=== PATIENT | female | born 1950 | race Caucasian/White ===

== ENCOUNTER 2017-07-06 16:22 | Observation (INO) | payer MEDICARE, MEDICAID ==
[~2017-07-06] VITALS: Ht 162.6 cm; Wt 75.0 kg
[~2017-07-06 16:22] MED LIST: AMBI10TA PO; CLON1 PO; ENDO7.5T10 PO; ESTR0.62 PV; EVIS60TA PO; FISH500C PO; FURO1TAB93 PO; GEOD80CA PO; MULTCAP13 PO; POTA-243 PO; QUET300 PO; SIMV20TA PO; SYNT100T PO; VITA400C58 PO; ZANA4CAP PO; ZANT300T PO
[2017-07-06 16:31] VITALS: BP 190/101; PULSE 99; RESP 18; TEMP 98.6
[2017-07-06] MEDS ORDERED: SODIUM CHLORIDE 0.9% FLUSH 10 ML FLUSH IV FLUSH PRN ×2 (16:45→19:00)
--- NOTE | 2017-07-06 16:45 | PD ---
HPI Chief Complaint: Psychiatric Symptoms Time Seen by Provider: 16:30 Travel History International Travel<30 days: No Contact w/Intl Traveler<30days: No Traveled to known affect area: No History of Present Illness HPI 66-year-old female presents by ambulance for altered mental status since 7 PM last night. She will not talk here and history is significantly limited. PFSH Past Medical History Narrative Medical by records Arthritis: Yes Bipolar Disorder: Yes Anxiety: Yes Depression: Yes High Cholesterol: Yes Fibromyalgia: Yes Hiatal Hernia: Yes (REPAIRED) Psychiatric: Yes Immunizations Current: Yes Thyroid Disease: Yes (HYPOTHYROIDISM) Menopausal: Yes : 2 Para: 2 Tubal Ligation: Yes Past Surgical History Narrative Surgical by records Cholecystectomy: Yes Hysterectomy: Yes Tonsillectomy: Yes Other Surgery: Yes (GALLBLADDER, HIETAL HERNIA) Social History Alcohol Use: No Tobacco Use: No Substance Use: No (denies; admits to social use of ETOH, had two beers yesterday) Allergies-Medications (Allergen,Severity, Reaction): Coded Allergies: Sulfa (Sulfonamide Antibiotics) (Unverified Allergy, Severe, 05/15/17) erythromycin base (Unverified Allergy, Severe, 05/15/17) penicillin G (Unverified Allergy, Severe, 05/15/17) Reported Meds & Prescriptions Reported Meds & Active Scripts Active Reported Geodon (Ziprasidone) 80 Mg Cap 240 Mg PO HS Trazodone (Trazodone HCl) 100 Mg Tablet 100 Mg PO HS Zanaflex (Tizanidine HCl) 4 Mg Tab 4 Mg PO TID Zantac (Ranitidine HCl) 300 Mg Tab 300 Mg PO HS Evista (Raloxifene HCl) 60 Mg Tab 60 Mg PO DAILY Seroquel (Quetiapine Fumarate) 400 Mg Tab 400 Mg PO DAILY Metamucil Smooth Texture (Psyllium Hydrophilic Mucilloid) 3.4 Gram Pow 3.4 Gm PO DAILY Klor-Con 10 (Potassium Chloride) 10 Meq Tab 10 Meq PO BID Miralax Powder (Polyethylene Glycol 3350 Powder) 17 Gm Powd 17 Gm PO DAILY Mix and dissolve one measuring capful (17 grams) in water or juice. [place]-3 ([place]-3 Fatty Acids) 1,000 Mg Capsule 1,000 Mg PO BID Multi-Vitamin/Minerals (Multiple Vitamins W/ Minerals) 1 Tab Tab 1 Tab PO DAILY Remeron (Mirtazapine) 30 Mg Tab 30 Mg PO HS Levothyroxine (Levothyroxine Sodium) 112 Mcg Tab 112 Mcg PO DAILY Lasix (Furosemide) 40 Mg Tab 40 Mg PO DAILY Klonopin (Clonazepam) 1 Mg Tab 1 Mg PO TID Citracal+D3 (Ngcotgf-Vbbksojeos-Ilmfave D) 250-107-500 Mg-Mg-Unit Chew 1 Chew PO BID Lipitor (Atorvastatin Calcium) 20 Mg Tab 20 Mg PO HS Aspirin Adult Low Strength (Aspirin) 81 Mg Tabdr 81 Mg PO DAILY Percocet (Oxycodone-Acetaminophen) 7.5-325 mg Tab 1 Tab PO Q6H PRN Review of Systems ROS Limitations: Poor Historian Physical Exam Exam Limitations: Poor Historian Narrative GENERAL: 66-year-old female with eyes open who responds to pain SKIN: Focused skin assessment warm/dry. HEAD: Atraumatic. Normocephalic. EYES: Pupils equal and round. No scleral icterus. No injection or drainage. ENT: No nasal bleeding or discharge. Mucous membranes pink and moist. NECK: Trachea midline. No JVD. CARDIOVASCULAR: Regular rate and rhythm. No murmur appreciated. RESPIRATORY: No accessory muscle use. Clear to auscultation. Breath sounds equal bilaterally. GASTROINTESTINAL: Abdomen nondistended. NEUROLOGICAL: Eyes open, moves extremities, mumbles, localizes pain Data Data Last Documented VS Vital Signs Date Time Temp Pulse Resp B/P (MAP) Pulse Ox O2 Delivery O2 Flow Rate FiO2 07/06/17 17:25 99 18 07/06/17 16:51 97 Nasal Cannula 2.00 07/06/17 16:31 98.6 190/101 (130) Orders Orders Electrocardiogram (07/06/17 16:35) Ammonia (07/06/17 16:35) Complete Blood Count With Diff (07/06/17 16:35) Comprehensive Metabolic Panel (07/06/17 16:35) Creatine Kinase (Cpk) (07/06/17 16:35) Prothrombin Time / Inr (Pt) (07/06/17 16:35) Act Partial Throm Time (Ptt) (07/06/17 16:35) Urinalysis - C+S If Indicated (07/06/17 16:35) Arterial Blood Gas (Abg) (07/06/17 16:35) Ct Brain W/O Iv Contrast(Rout) (07/06/17 16:35) Blood Glucose (07/06/17 16:35) Ecg Monitoring (07/06/17 16:35) Iv Access Insert/Monitor (07/06/17 16:35) Oximetry (07/06/17 16:35) Sodium Chloride 0.9% Flush (Ns Flush) (07/06/17 16:45) Drug Screen, Random Urine (07/06/17 16:35) Alcohol (Ethanol) (07/06/17 16:47) CKMB (07/06/17 16:47) CKMB% (07/06/17 16:47) Admit Order (Ed Use Only) (07/06/17 18:05) Diet Npo (07/06/17 Dinner) Vital Signs (Adult) MIKE.Q4H (07/06/17 18:05) Neuro Checks . ORDERED (07/06/17 18:05) Sodium Chlor 0.9% 1000 Ml Inj (Ns 1000 M (07/06/17 18:15) Labs Laboratory Tests Test 07/06/17 16:47 07/06/17 16:48 07/06/17 16:52 White Blood Count 6.1 TH/MM3 Red Blood Count 4.12 MIL/MM3 Hemoglobin 13.5 GM/DL Hematocrit 39.5 % Mean Corpuscular Volume 96.0 FL Mean Corpuscular Hemoglobin 32.7 PG Mean Corpuscular Hemoglobin Concent 34.1 % Red Cell Distribution Width 13.6 % Platelet Count 317 TH/MM3 Mean Platelet Volume 6.8 FL Neutrophils (%) (Auto) 66.8 % Lymphocytes (%) (Auto) 24.9 % Monocytes (%) (Auto) 7.5 % Eosinophils (%) (Auto) 0.2 % Basophils (%) (Auto) 0.6 % Neutrophils # (Auto) 4.1 TH/MM3 Lymphocytes # (Auto) 1.5 TH/MM3 Monocytes # (Auto) 0.5 TH/MM3 Eosinophils # (Auto) 0.0 TH/MM3 Basophils # (Auto) 0.0 TH/MM3 CBC Comment DIFF FINAL Differential Comment Prothrombin Time 10.7 SEC Prothromb Time International Ratio 1.1 RATIO Activated Partial Thromboplast Time 23.2 SEC Blood Urea Nitrogen 15 MG/DL Creatinine 1.17 MG/DL Random Glucose 91 MG/DL Total Protein 7.0 GM/DL Albumin 3.3 GM/DL Calcium Level 9.8 MG/DL Alkaline Phosphatase 78 U/L Aspartate Amino Transf (AST/SGOT) 55 U/L Alanine Aminotransferase (ALT/SGPT) 47 U/L Total Bilirubin 0.3 MG/DL Sodium Level 139 MEQ/L Potassium Level 4.3 MEQ/L Chloride Level 103 MEQ/L Carbon Dioxide Level 28.0 MEQ/L Anion Gap 8 MEQ/L Estimat Glomerular Filtration Rate 46 ML/MIN Ammonia 15 MCMOL/L Total Creatine Kinase 468 U/L Creatine Kinase MB 2.2 NG/ML Creatine Kinase MB % 0.5 % Ethyl Alcohol Level LESS THAN 3 MG/DL Urine Color LIGHT-YELLOW Urine Turbidity CLEAR Urine pH 7.5 Urine Specific [place] 1.004 Urine Protein NEG mg/dL Urine Glucose (UA) NEG mg/dL Urine Ketones NEG mg/dL Urine Occult Blood NEG Urine Nitrite NEG Urine Bilirubin NEG Urine Urobilinogen LESS THAN 2.0 MG/DL Urine Leukocyte Esterase NEG Urine WBC LESS THAN 1 /hpf Microscopic Urinalysis Comment CATH-CULT NOT IND Urine Opiates Screen NEG Urine Barbiturates Screen NEG Urine Amphetamines Screen NEG Urine Benzodiazepines Screen NEG Urine Cocaine Screen NEG Urine Cannabinoids Screen NEG Blood Gas Puncture Site RT RADIAL Blood Gas Patient Temperature 98.6 Blood Gas HCO3 28 mmol/L Blood Gas Base Excess 4.2 mmol/L Blood Gas Oxygen Saturation 92 % Arterial Blood pH 7.47 Arterial Blood Partial Pressure CO2 39 mmHg Arterial Blood Partial Pressure O2 70 mmHG Arterial Blood Oxygen Content 16.2 Vol % Arterial Blood Carboxyhemoglobin 1.5 % Arterial Blood Methemoglobin 0.8 % Blood Gas Hemoglobin 12.5 G/DL Blood Gas Inspired Oxygen 21 % [facility] Medical Decision Making Medical Screen Exam Complete: Yes Emergency Medical Condition: Yes Medical Record Reviewed: Yes (Past history confirmed) Interpretation(s) CBC & BMP Diagram 07/06/17 16:47 Total Protein 7.0, Albumin 3.3 L, Calcium Level 9.8, Alkaline Phosphatase 78, Aspartate Amino Transf (AST/SGOT) 55 H, Alanine Aminotransferase (ALT/SGPT) 47, Total Bilirubin 0.3 Last [address] 07/06/17 8005 Signed Impressions: Service Date/Time: Thursday, July 06, 2017 17:28 - CONCLUSION: Unremarkable study. Deborah Hameed MD Differential Diagnosis Alcohol intoxication, hepatic encephalopathy, electrolyte abnormality, intracranial Narrative Course We will check blood work, urinalysis, CT head and reevaluate ed workup no acute, will place in observation for further care, patient's family updated at bedside and are concerned about her taking her medications appropriately. They agree with admission Physician Communication Physician Communication dr shore agrees to admit Diagnosis Primary Impression: Altered mental status Qualified Codes: R41.82 - Altered mental status, unspecified Admitting Information Admitting Physician Requests: Observation Elizabeth Joyner MD Jul 06, 2017 16:45
[2017-07-06 16:51] VITALS: O2SAT 97
[2017-07-06] MEDS ORDERED: FURO1TAB60 PO (16:54)
[2017-07-06] MEDS ORDERED: TIZA4 PO (16:54)
[2017-07-06] MEDS ORDERED: MULTTAB62 PO (16:54)
[2017-07-06] MEDS ORDERED: MIRA3350 PO (16:54)
[2017-07-06] MEDS ORDERED: SERO400T PO (16:54)
[2017-07-06] MEDS ORDERED: PERC7.5T13 PO (16:54)
[2017-07-06] MEDS ORDERED: TRAZ100T10 PO (16:54)
[2017-07-06] MEDS ORDERED: GEOD80CA PO (16:54)
[2017-07-06] MEDS ORDERED: ZANT300T PO (16:54)
[2017-07-06] MEDS ORDERED: LIPI20TA PO (16:54)
[2017-07-06] MEDS ORDERED: RALO60 PO (16:54)
[2017-07-06] MEDS ORDERED: CALC1CHW30 PO (16:54)
[2017-07-06] MEDS ORDERED: META28PO PO (16:54)
[2017-07-06] MEDS ORDERED: LEVO112T2 PO (16:54)
[2017-07-06] MEDS ORDERED: KLOR10TA PO (16:54)
[2017-07-06] MEDS ORDERED: REME30TA PO (16:54)
[2017-07-06] MEDS ORDERED: CLON1 PO (16:54)
[2017-07-06] MEDS ORDERED: OMEG10004 PO (16:54)
[2017-07-06] MEDS ORDERED: ASPI81TA16 PO (16:54)
[2017-07-06 17:11] LABS: BILIRUBIN, URINE NEG (NEG); BLOOD, URINE NEG (NEG); GLUCOSE,URINE NEG (NEG); KETONE, URINE NEG (NEG); NITRITE,URINE NEG (NEG); PH, URINE 7.5 (5.0-8.5); URINE COLOR LIGHT-YELLOW (YELLW/STRAW); URINE LEUKOCYTE ESTERASE NEG (NEG)
[2017-07-06 17:24] LABS: INTERNATIONAL NORMALIZED RATIO 1.1 RATIO; PROTHROMBIN TIME - PATIENT 10.7 SEC (9.8-11.6)
--- NOTE | 2017-07-06 17:37 | RADRPT ---
EXAM DATE/TIME: 07/06/2017 17:28 [place] COMPARISON: No previous studies available for comparison. INDICATIONS : Non verbal, altered mental status. RADIATION DOSE: 41.12 CTDIvol (mGy) MEDICAL HISTORY : Gastroesophageal reflux disease. Hernia, hiatal. Psych SURGICAL HISTORY : Cholecystectomy. Hysterectomy. ENCOUNTER: Initial ACUITY: 1 day PAIN SCALE: 0/10 LOCATION: cranial TECHNIQUE: Multiple contiguous axial images were obtained of the head. Using automated exposure control and adj ustment of the mA and/or kV according to patient size, radiation dose was kept as low as reasonably a chievable to obtain optimal diagnostic quality images. DICOM format image data is available electro nically for review and comparison. FINDINGS: There is no evidence for intracranial hemorrhage, mass effect, mass lesions, edema, or extra-axial fl uid collections. The visualized bony structures appear intact. The ventricles are normal size for t he patient's age. There are no signs of acute infarction for technique. There is minimal mucoperiost eal thickening within the left maxillary sinus. CONCLUSION: Unremarkable study. Deborah Hameed MD on July 06, 2017 at 17:34 Board Certified Radiologist. This report was verified electronically.
[2017-07-06 17:50] LABS: AUTOMATED NEUTROPHIL # 4.1 TH/MM3 (1.8-7.7); BASOPHIL % 0.6 % (0.0-2.0); EOSINOPHIL % 0.2 % (0.0-4.0); HEMATOCRIT 39.5 % (35.0-46.0); HEMOGLOBIN 13.5 GM/DL (11.6-15.3); LYMPH % 24.9 % (9.0-44.0); LYMPHOCYTE # 1.5 TH/MM3 (1.0-4.8); MEAN CORPUSCULAR HEMOGLOBIN 32.7 PG (27.0-34.0); MEAN CORPUSCULAR HGB CONC 34.1 % (32.0-36.0); MEAN PLATELET VOLUME 6.8 FL (7.0-11.0); MONO % 7.5 % (0.0-8.0); MONOCYTE # 0.5 TH/MM3 (0-0.9); NEUT % 66.8 % (16.0-70.0); PLATELET COUNT 317 TH/MM3 (150-450); RED BLOOD COUNT 4.12 MIL/MM3 (4.00-5.30); RED CELL DISTRIBUTION WIDTH 13.6 % (11.6-17.2); WHITE BLOOD COUNT 6.1 TH/MM3 (4.0-11.0)
[2017-07-06 17:51] LABS: ALT (GPT) 47 U/L (10-53)
[2017-07-06 17:53] LABS: ALBUMIN 3.3 GM/DL (3.4-5.0); ALKALINE PHOSPHATASE 78 U/L (45-117); AST (GOT) 55 U/L (15-37); BLOOD UREA NITROGEN 15 MG/DL (7-18); CALCIUM 9.8 MG/DL (8.5-10.1); CHLORIDE 103 MEQ/L (98-107); CREATININE 1.17 MG/DL (0.50-1.00); GLOMERULAR FILTRATION RATE 46 ML/MIN (>89); GLUCOSE,RANDOM 91 MG/DL (74-106); SODIUM (NA) 139 MEQ/L (136-145); TOTAL BILIRUBIN ADULT 0.3 MG/DL (0.2-1.0)
[2017-07-06] MEDS: SODIUM CHLOR 0.9% 1000 ML INJ 1,000 ML IV SCH ×2 (18:20→20:24)
[2017-07-06 18:25] VITALS: BP 153/87; PULSE 92; RESP 18; O2SAT 100
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
[2017-07-06] MEDS ORDERED: BISACODYL 10 MG SUPP RECTAL PRN (19:00)
[2017-07-06] MEDS ORDERED: LACTULOSE SYRUP 20 GM/30 ML CUP PO PRN (19:00)
[2017-07-06] MEDS ORDERED: ONDANSETRON HCL 4 MG/2 ML VIAL IVP PRN (19:00)
[2017-07-06] MEDS ORDERED: SENNOSIDES 8.6 MG TAB PO PRN (19:00)
[2017-07-06] MEDS ORDERED: ACETAMINOPHEN 325 MG TAB PO PRN (19:00)
[2017-07-06] MEDS ORDERED: MAGNESIUM HYDROXIDE SUSP 30 ML CUP PO PRN (19:00)
[2017-07-06] MEDS: DOCUSATE SODIUM 50 MG/SENNA 8.6 MG TAB PO SCH (20:23)
[2017-07-06] MEDS: LORazepam 2 MG/ML VIAL IV PUSH PRN (20:24)
[2017-07-06] MEDS: SODIUM CHLORIDE 0.9% FLUSH 10 ML FLUSH IV FLUSH SCH (20:24)
[2017-07-06] MEDS ORDERED: MIRTAZAPINE ODT 30 MG TAB PO SCH (21:00)
[2017-07-06] MEDS ORDERED: traZODone HCL 100 MG TAB PO SCH (21:00)
[2017-07-06 21:19] VITALS: BP 175/82; PULSE 93; RESP 17; TEMP 98.9; O2SAT 94
[2017-07-07 04:36] LABS: AUTOMATED NEUTROPHIL # 2.6 TH/MM3 (1.8-7.7); BASOPHIL % 0.6 % (0.0-2.0); EOSINOPHIL % 0.8 % (0.0-4.0); HEMATOCRIT 35.8 % (35.0-46.0); LYMPH % 37.1 % (9.0-44.0); LYMPHOCYTE # 1.9 TH/MM3 (1.0-4.8); MEAN CELL VOLUME 96.3 FL (80.0-100.0); MEAN CORPUSCULAR HEMOGLOBIN 32.4 PG (27.0-34.0); MEAN CORPUSCULAR HGB CONC 33.6 % (32.0-36.0); MEAN PLATELET VOLUME 6.3 FL (7.0-11.0); MONO % 11.8 % (0.0-8.0); MONOCYTE # 0.6 TH/MM3 (0-0.9); NEUT % 49.7 % (16.0-70.0); PLATELET COUNT 312 TH/MM3 (150-450); RED BLOOD COUNT 3.71 MIL/MM3 (4.00-5.30); RED CELL DISTRIBUTION WIDTH 13.4 % (11.6-17.2); WHITE BLOOD COUNT 5.2 TH/MM3 (4.0-11.0)
[2017-07-07] MEDS: SODIUM CHLOR 0.9% 1000 ML INJ 1,000 ML IV SCH ×3 (04:38→12:44)
[2017-07-07 04:46] VITALS: BP 144/79; PULSE 89; RESP 17; TEMP 98.9; O2SAT 95
[2017-07-07 05:00] LABS: ALBUMIN 2.9 GM/DL (3.4-5.0); ALKALINE PHOSPHATASE 67 U/L (45-117); ALT (GPT) 42 U/L (10-53); AST (GOT) 51 U/L (15-37); BICARBONATE 28.4 MEQ/L (21.0-32.0); BLOOD UREA NITROGEN 14 MG/DL (7-18); CHLORIDE 107 MEQ/L (98-107); CREATININE 1.02 MG/DL (0.50-1.00); GLOMERULAR FILTRATION RATE 54 ML/MIN (>89); GLUCOSE,RANDOM 82 MG/DL (74-106); SODIUM (NA) 142 MEQ/L (136-145); TOTAL BILIRUBIN ADULT 0.3 MG/DL (0.2-1.0); TOTAL PROTEIN 6.2 GM/DL (6.4-8.2)
[2017-07-07] MEDS: LORazepam 2 MG/ML VIAL IV PUSH PRN (05:13)
[2017-07-07 07:48] VITALS: BP 166/89; PULSE 84; RESP 16; TEMP 98.7; O2SAT 95
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
[2017-07-07] MEDS: DOCUSATE SODIUM 50 MG/SENNA 8.6 MG TAB PO SCH (10:04)
[2017-07-07] MEDS: SODIUM CHLORIDE 0.9% FLUSH 10 ML FLUSH IV FLUSH SCH (10:05)
[2017-07-07] MEDS ORDERED: SODIUM CHLORIDE 0.65% NASAL SPRAY 45 ML BTL EACH NARE PRN (11:00)
[2017-07-07 11:45] VITALS: BP 146/71; PULSE 82; RESP 16; TEMP 98.6; O2SAT 95
[2017-07-07] MEDS ORDERED: QUEtiapine FUMARATE 200 MG TAB PO SCH (14:00)
--- NOTE | 2017-07-07 14:06 | PD.PSY.CON ---
Provisional Diagnosis Admission Date Jul 06, 2017 at 18:06 [place] I. Schizoaffective disorder, bipolar type, parkinsonism (medication induced?) [place] II. Deferred [place] III. COPD, hypothyroidism, hypertension, acute renal insufficiency rhabdomyolysis [place] IV. Poor Social support, history of chronic medical illnesses. [place]as V. 40 History of Present Illness Service Psychiatry Consult Requested By ER team Reason for Consult Acute ihsan Primary Care Physician Unknown HPI The patient is 66-year-old woman, domiciled with her fianc in [facility], retired, with psychiatric history of schizoaffective disorder bipolar type, bipolar disorder, depression, anxiety, around 12 psychiatric hospitalizations, her last hospitalization was last month in [place], she was hospitalized for about 3 weeks, no previous suicidal attempts, no self cutting behavior, establish outpatient care with Dr. Caldera, she is on Remeron 30 mg, Paxil and 100 mg, Seroquel 400 mg, Geodon 80 mg twice a day, medical history of Fibromyalgia, HTN and Hypothyroidism who was brought to the ER by family secondary to AMS. Pt unable to provide any history at this time as she is non-verbal and not following commands. Sister and Brother in Law at bedside providing history. Per Sister, pt was "fine" last night at approx 7pm when they went to visit her at her house. States she was walking/talking without any difficulty. Today, sister states she was unable to reach pt and became concerned. Upon their arrival pt noted to be in "manic state", mumbling/pacing , walking into linder, non-verbal. Per Sister, pt has had h/o similar symptoms, recently admitted to [facility] for similar presentation thought to be related to not taking medications. Sister believes patient's boyfriend may be stealing her pills and is concerned he is also stealing her money. On arrival, BP 190/ 100, HR 99, O2 sat 97% on 2L NC, Afebrile. CBC unremarkable. Chemistry unremarkable except for creatinine 1.17, previously 1.09 on 08/09/09. K4 68. Ammonia normal. INR 1.1. UA negative. Urine Drug Screen negative. Alcohol negative. CT Head unremarkable. Chart reviewed. The case was widely discussed with primary attending and nurse in charge. Per information from her sister Jadyn Colmenares was obtained. On psychiatric evaluation the patient at the beginning a little bit guarded and oppositional, but with redirection she became very cooperative calmer. She is not insightful about the reason of her hospitalization. She says that she was brought to the hospital because she collapsed and blackout. She does not remember having any major mood episode. She reports good mood at this moment. She denies suicidal and homicidal ideation, she denies visual and auditory hallucinations. The patient is able to answer correctly and in a logical manner most of my questions. She is logical, she is coherent and relevant. Completely oriented 3. No attention deficit, no fluctuation of consciousness present. During my evaluation there is no hakeem loosening of associations, flight of ideas, there is a little bit of paranoia toward her sister, but there is no marked ihsan, agitation or aggressive behavior. However, as per primary attending and nurse in charge, the patient has been screaming in the ER, difficult to handle, needing constant redirection. Her sister reports that, they do not live together, but since the patient was discharged from the hospitalization of 3 weeks in [place] about 2 weeks ago, she has been receiving phone calls of the patient's neighbor due to erratic and disorganized behavior and of the patient. She feels that the patient is not safe at home. She says that the patient's fianc is most probably taking her medications, he has history of drug abuse. She feels that the patient has been decompensated especially in the last 3 days, making accusations to her, accusations about her fianc, most probably not taking her medications, her apartment "is a mess". She is afraid of the patient is not safe alone and she is not able to take care of herself. She also adds that the patient has been sleeping very poorly since she was discharged from [place]. Review of Systems Constitutional: DENIES: Diaphoretic episodes, Fatigue, Fever, Weight gain, Weight loss, Chills, Dizziness, Change in appetite, Night Sweats Endocrine: DENIES: Abnorml menstrual pattern, Heat/cold intolerance, Polydipsia , Polyuria, Polyphagia Eyes: DENIES: Blurred vision, Diplopia, Eye inflammation, Eye pain, Vision loss , Photosensitivity, Double Vision Ears, nose, mouth, throat: DENIES: Tinnitus, Hearing loss, Vertigo, Nasal discharge, Oral lesions, Throat pain, Hoarseness, Ear Pain, Running Nose, Epistaxis, Sinus Pain, Toothache, Odynophagia Respiratory: DENIES: Apneas, Cough, Snoring, Wheezing, Hemoptysis, Sputum production, Shortness of breath Cardiovascular: DENIES: Chest pain, Palpitations, Syncope, Dyspnea on Exertion , PND, Lower Extremity Edema, Orthopnea, Claudication Gastrointestinal: DENIES: Abdominal pain, Black stools, Bloody stools, Constipation, Diarrhea, Nausea, Vomiting, Difficulty Swallowing, Anorexia Genitourinary: DENIES: Abnormal vaginal bleeding, Dysmenorrhea, Dyspareunia, Sexual dysfunction, Urinary frequency, Urinary incontinence, Urgency, Hematuria , Dysuria, Nocturia, Vaginal discharge Musculoskeletal: DENIES: Joint pain, Muscle aches, Stiffness, Joint Swelling, Back pain, Neck pain Integumentary: DENIES: Abnormal pigmentation, Pruritus, Rash, Nail changes, Breast masses, Breast skin changes, Nipple discharge Hematologic/lymphatic: DENIES: Bruising, Lymphadenopathy Immunologic/allergic: DENIES: Eczema, Urticaria Psychiatric: COMPLAINS OF: Mood changes, Delusions, DENIES: Anxiety, Confusion , Depression, Hallucinations, Agitation, Suicidal Ideation, Homicidal Ideation Past Family Social History Coded Allergies: Sulfa (Sulfonamide Antibiotics) (Unverified Allergy, Severe, 05/15/17) erythromycin base (Unverified Allergy, Severe, 05/15/17) penicillin G (Unverified Allergy, Severe, 05/15/17) Reported Medications Ziprasidone (Geodon) 80 Mg Cap, 240 MG PO HS, #60 CAP 0 Refills 07/06/17 Trazodone (Trazodone) 100 Mg Tablet, 100 MG PO HS for Control Depression, #30 TAB 0 Refills 07/06/17 Tizanidine (Zanaflex) 4 Mg Tab, 4 MG PO TID for Muscle Spasm, TAB 0 Refills 18 Ranitidine (Zantac) 300 Mg Tab, 300 MG PO HS, TAB 0 Refills 07/06/17 Raloxifene (Evista) 60 Mg Tab, 60 MG PO DAILY for Chemotherapy Management, #30 TAB 0 Refills 07/06/17 Quetiapine (Seroquel) 400 Mg Tab, 400 MG PO DAILY, #30 TAB 0 Refills 18 Psyllium Powder (Metamucil Smooth Texture) 3.4 Gram Pow, 3.4 GM PO DAILY 07/06/17 Potassium Chloride ER (Klor-Con 10) 10 Meq Tab, 10 MEQ PO BID for Electrolyte Replacement, #60 TAB 0 Refills 07/06/17 Polyethylene Glycol 3350 Powder (Miralax Powder) 17 Gm Powd, 17 GM PO DAILY for Constipation, #1 CAN 0 Refills Mix and dissolve one measuring capful (17 grams) in water or juice. 07/06/17 [place]-3 Fatty Acids ([place]-3) 1,000 Mg Capsule, 1000 MG PO BID for Nutritional Supplement 07/06/17 Multiple Vitamins W/ Minerals (Multi-Vitamin/Minerals) 1 Tab Tab, 1 TAB PO DAILY for Nutritional Supplement 07/06/17 Mirtazapine (Remeron) 30 Mg Tab, 30 MG PO HS for Depression Control, #30 TAB 0 Refills 07/06/17 Levothyroxine (Levothyroxine) 112 Mcg Tab, 112 MCG PO DAILY for Thyroid, #30 TAB 0 Refills 07/06/17 Furosemide (Lasix) 40 Mg Tab, 40 MG PO DAILY, #30 TAB 0 Refills 07/06/17 Kjjitpv-Mgnhixdfpc-Pzywpmb D (Citracal+D3) 250-107-500 Mg-Mg-Unit Chew, 1 CHEW PO BID, TAB 07/06/17 Atorvastatin (Lipitor) 20 Mg Tab, 20 MG PO HS for Cholesterol Management, #30 TAB 0 Refills 07/06/[address] (Aspirin Adult Low Strength) 81 Mg Tabdr, 81 MG PO DAILY, TAB 07/06/17 Oxycodone-Acetaminophen (Percocet) 7.5-325 mg Tab, 1 TAB PO Q6H Y for SEVERE PAIN, TAB 0 Refills 07/06/17 Discontinued Reported Medications Clonazepam (Klonopin) 1 Mg Tab, 1 MG PO TID, #90 TAB 0 Refills 07/06/17 Current Medications Medications (Trade) Dose Ordered Sig/Gabriela Route Start Time Stop Time Status Last Admin Sodium Chloride 1,000 ml @ 84 mls/hr [id number] IV 07/06/17 18:15 07/07/17 04:38 Sodium Chloride 1,000 ml @ 100 mls/hr Q10H IV 07/06/17 19:00 07/06/17 20:24 (NS Flush) 2 ml UNSCH PRN IV FLUSH 07/06/17 19:00 (NS Flush) 2 ml BID IV FLUSH 07/06/17 21:00 07/06/17 20:24 (Zofran Inj) 4 mg Q6H PRN IVP 07/06/17 19:00 (Tylenol) 650 mg Q6H PRN PO 07/06/17 19:00 (Neetu-Colace) 1 tab BID PO 07/06/17 21:00 07/07/17 10:04 (Milk Of Magnesia Liq) 30 ml Q12H PRN PO 07/06/17 19:00 07/06/17 21:04 (Senokot) 17.2 mg Q12H PRN PO 07/06/17 19:00 (Dulcolax Supp) 10 mg DAILY PRN RECTAL 07/06/17 19:00 (Lactulose Liq) 30 ml DAILY PRN PO 07/06/17 19:00 (Zanaflex) 4 mg TID PO 07/07/17 09:00 07/07/17 12:43 (Ativan Inj) 1 mg Q2H PRN IV PUSH 07/06/17 19:00 07/07/17 05:13 (Remeron Soltab Odt) 30 mg HS PO 07/06/17 21:00 07/07/17 00:31 (Desyrel) 100 mg HS PO 07/06/17 21:00 07/06/17 20:23 (Ensign Rg [place]) 2 spray Q4H PRN EACH NARE 07/07/17 11:00 07/07/17 12:43 (Geodon) 240 mg HS PO 07/07/17 21:00 UNV Non-Formulary Medication 400 mg DAILY PO 07/07/17 13:45 UNV Family Psych History Patient has several family members with bipolar disorder Social History Patient was born in [place], racing in the [place] area, she lives in [facility] with her fianc, she is retired, has 2 daughters, no contact with them, supported by SSI and SSD, her highest level of education is some college Patient's Strengths (min. 2) Patient has established outpatient care Physical Exam Patient has bilateral hand tremors, she scan of hypoactive, extensive, but no acute withdrawal, sedation noted Vital Signs Vital Signs Date Time Temp Pulse Resp B/P (MAP) Pulse Ox O2 Delivery O2 Flow Rate FiO2 07/07/17 11:45 98.6 82 16 146/71 (96) 95 07/06/17 18:25 Room Air 07/06/17 16:51 2.00 Lab Results Test 07/06/17 16:47 07/06/17 16:48 07/06/17 16:52 07/07/17 04:15 White Blood Count 6.1 TH/MM3 5.2 TH/MM3 Red Blood Count 4.12 MIL/MM3 3.71 MIL/MM3 Hemoglobin 13.5 GM/DL 12.0 GM/DL Hematocrit 39.5 % 35.8 % Mean Corpuscular Volume 96.0 FL 96.3 FL Mean Corpuscular Hemoglobin 32.7 PG 32.4 PG Mean Corpuscular Hemoglobin Concent 34.1 % 33.6 % Red Cell Distribution Width 13.6 % 13.4 % Platelet Count 317 TH/MM3 312 TH/MM3 Mean Platelet Volume 6.8 FL 6.3 FL Neutrophils (%) (Auto) 66.8 % 49.7 % Lymphocytes (%) (Auto) 24.9 % 37.1 % Monocytes (%) (Auto) 7.5 % 11.8 % Eosinophils (%) (Auto) 0.2 % 0.8 % Basophils (%) (Auto) 0.6 % 0.6 % Neutrophils # (Auto) 4.1 TH/MM3 2.6 TH/MM3 Lymphocytes # (Auto) 1.5 TH/MM3 1.9 TH/MM3 Monocytes # (Auto) 0.5 TH/MM3 0.6 TH/MM3 Eosinophils # (Auto) 0.0 TH/MM3 0.0 TH/MM3 Basophils # (Auto) 0.0 TH/MM3 0.0 TH/MM3 CBC Comment DIFF FINAL DIFF FINAL Differential Comment Prothrombin Time 10.7 SEC Prothromb Time International Ratio 1.1 RATIO Activated Partial Thromboplast Time 23.2 SEC Blood Urea Nitrogen 15 MG/DL 14 MG/DL Creatinine 1.17 MG/DL 1.02 MG/DL Random Glucose 91 MG/DL 82 MG/DL Total Protein 7.0 GM/DL 6.2 GM/DL Albumin 3.3 GM/DL 2.9 GM/DL Calcium Level 9.8 MG/DL 9.0 MG/DL Alkaline Phosphatase 78 U/L 67 U/L Aspartate Amino Transf (AST/SGOT) 55 U/L 51 U/L Alanine Aminotransferase (ALT/SGPT) 47 U/L 42 U/L Total Bilirubin 0.3 MG/DL 0.3 MG/DL Sodium Level 139 MEQ/L 142 MEQ/L Potassium Level 4.3 MEQ/L 4.1 MEQ/L Chloride Level 103 MEQ/L 107 MEQ/L Carbon Dioxide Level 28.0 MEQ/L 28.4 MEQ/L Anion Gap 8 MEQ/L 7 MEQ/L Estimat Glomerular Filtration Rate 46 ML/MIN 54 ML/MIN Ammonia 15 MCMOL/L Total Creatine Kinase 468 U/L 294 U/L Creatine Kinase MB 2.2 NG/ML 1.2 NG/ML Creatine Kinase MB % 0.5 % 0.4 % Ethyl Alcohol Level LESS THAN 3 MG/DL Urine Color LIGHT-YELLOW Urine Turbidity CLEAR Urine pH 7.5 Urine Specific [place] 1.004 Urine Protein NEG mg/dL Urine Glucose (UA) NEG mg/dL Urine Ketones NEG mg/dL Urine Occult Blood NEG Urine Nitrite NEG Urine Bilirubin NEG Urine Urobilinogen LESS THAN 2.0 MG/DL Urine Leukocyte Esterase NEG Urine WBC LESS THAN 1 /hpf Microscopic Urinalysis Comment CATH-CULT NOT IND Urine Opiates Screen NEG Urine Barbiturates Screen NEG Urine Amphetamines Screen NEG Urine Benzodiazepines Screen NEG Urine Cocaine Screen NEG Urine Cannabinoids Screen NEG Blood Gas Puncture Site RT RADIAL Blood Gas Patient Temperature 98.6 Blood Gas HCO3 28 mmol/L Blood Gas Base Excess 4.2 mmol/L Blood Gas Oxygen Saturation 92 % Arterial Blood pH 7.47 Arterial Blood Partial Pressure CO2 39 mmHg Arterial Blood Partial Pressure O2 70 mmHG Arterial Blood Oxygen Content 16.2 Vol % Arterial Blood Carboxyhemoglobin 1.5 % Arterial Blood Methemoglobin 0.8 % Blood Gas Hemoglobin 12.5 G/DL Blood Gas Inspired Oxygen 21 % Test 07/07/17 12:05 Total Creatine Kinase 191 U/L Mental Status Examination Appearance: Appropriate Consciousness: Alert Orientation: x4 Motor Activity: Normal gait Speech: Unremarkable Language: Adequate Fund of Knowledge: Adequate Attention and Concentration: Adequate Memory: Unremarkable Mood: Appropriate Affect: Appropriate Thought Process & Associations: Intact Thought Content: Appropriate Hallucination Type: None Delusion Type: Paranoid Suicidal Ideation: No Suicidal Plan: No Suicidal Intention: No Homicidal Ideation: No Homicidal Plan: No Homicidal Intention: No Insight: Fair Judgment: Impulsive Assessment & Plan Problem List: (1) Schizoaffective disorder ICD Codes: F25.9 - Schizoaffective disorder, unspecified Assessment & Plan: On psychiatric evaluation today the patient presents calm, cooperative in the interview, she reports good mood, denies suicidal and homicidal ideation, she denies visual and auditory hallucinations. Moment she is logical, she is coherent and relevant. There is no evidence of acute ihsan at the moment. However, there is some paranoia, internal preoccupation present. As per collateral formation the patient has been presented prominent mood swings, episodic ihsan, difficulty sleeping at night, periods of disorganization and paranoia, self neglecting behavior at home. Her sister feels that the patient is not safe to be living independently in the community with this level of decompensation. I'm going to go ahead and rodriguez acted the patient. Patient could be potentially a danger to self and others. I will restart her outpatient psychotropics. Will ADD benztropine 1 mg twice a day for parkinsonism. Extensive support, motivation and psychoeducation provided. Case was widely discussed with primary attending and nurse in charge. Assessment & Plan Estimated LOS: Lane Bean MD Jul 07, 2017 14:06
[2017-07-07] MEDS ORDERED: BENZTROPINE MESYLATE 1 MG TAB PO SCH (14:15)
[2017-07-07 15:17] VITALS: BP 124/66; PULSE 81; RESP 16; TEMP 98.7; O2SAT 96
[2017-07-07] MEDS ORDERED: ZIPRASIDONE HCL 80 MG CAP PO SCH (21:00)
--- NOTE | 2017-07-07 22:14 | EKG ---
Date Performed: 07/06/2017 Time Performed: 16:47:37 PTAGE: 66 years EKG: Sinus rhythm BORDERLINE LEFT AXIS DEVIATION MINIMAL VOLTAGE CRITERIA FOR LVH, CONSIDER NORMAL VARIANT BORDERLINE ECG PREVIOUS TRACING : 09/10/2004 15.06 DOCTOR: Luis Iniguez Interpretating Date/Time 07/07/2017 22:05:01
== END 2017-07-07 15:54 ==
LOC: NEPC 16:22 → NEDA 18:06 → NEPGCP 19:32
PROVIDERS: ADMIT Family Medicine; ATTEND Family Medicine
DX: G93.40 Encephalopathy, unspecified (principal); F31.9 Bipolar disorder, unspecified; N28.9 Disorder of kidney and ureter, unspecified; M62.82 Rhabdomyolysis; R55 Syncope and collapse; I12.9 Hypertensive chronic kidney disease with stage 1 through stage 4 chronic kidney disease, or unspecified chronic kidney disease; N18.9 Chronic kidney disease, unspecified; E03.9 Hypothyroidism, unspecified; J44.9 Chronic obstructive pulmonary disease, unspecified; M79.7 Fibromyalgia; G20 Parkinson's disease; K21.9 Gastro-esophageal reflux disease without esophagitis; F25.0 Schizoaffective disorder, bipolar type; F41.9 Anxiety disorder, unspecified; Z91.14 Patient's other noncompliance with medication regimen; Z79.899 Other long term (current) drug therapy; Z79.82 Long term (current) use of aspirin; Z88.0 Allergy status to penicillin; Z88.2 Allergy status to sulfonamides
CPT/HCPCS: 36600; 70450; 80053; 80307; 81001; 82140; 82550; 82552; 82805; 85025; 85610; 85730; 93005; 96361; 96374; 96376; G0378; G8987-GP; G8988-GP; J2060; J7030

== ENCOUNTER 2017-07-07 15:11 | Inpatient (IN) | payer OTHER, MEDICAID, MEDICARE ==
[~2017-07-07] VITALS: Ht 157.5 cm; Wt 74.0 kg
[~2017-07-07 15:11] MED LIST changes: -AMBI10TA PO; +ASPI81TA16 PO; +CALC1CHW30 PO; -ENDO7.5T10 PO; -ESTR0.62 PV; -EVIS60TA PO; -FISH500C PO; +FURO1TAB60 PO; -FURO1TAB93 PO; +KLOR10TA PO; +LEVO112T2 PO; +LIPI20TA PO; +META28PO PO; +MIRA3350 PO; -MULTCAP13 PO; +MULTTAB62 PO; +OMEG10004 PO; +PERC7.5T13 PO; -POTA-243 PO; -QUET300 PO; +RALO60 PO; +REME30TA PO; +SERO400T PO; -SIMV20TA PO; -SYNT100T PO; +TIZA4 PO; +TRAZ100T10 PO; -VITA400C58 PO; -ZANA4CAP PO
[2017-07-07 17:00] VITALS: BP 117/58; PULSE 93; RESP 20; TEMP 98.5; O2SAT 96
[2017-07-07 18:08] VITALS: BP 116/65; PULSE 93; RESP 16; TEMP 98.2; O2SAT 95
[2017-07-07] MEDS ORDERED: LORazepam 1 MG TAB PO PRN (19:00)
[2017-07-07] MEDS ORDERED: MAGNESIUM HYDROXIDE SUSP 30 ML CUP PO PRN (19:00)
[2017-07-07] MEDS ORDERED: ALUMINUM/MAGNESIUM/SIMETH 30 ML CUP PO PRN (19:00)
[2017-07-07] MEDS ORDERED: LORazepam 2 MG/ML VIAL IM PRN ×2 (19:00)
[2017-07-07] MEDS: CALCIUM/VITAMIN D 250 MG/125 U TAB PO SCH (21:00)
[2017-07-07] MEDS: ZIPRASIDONE HCL 80 MG CAP PO SCH (21:00)
[2017-07-07] MEDS: MIRTAZAPINE ODT 30 MG TAB PO SCH (21:00)
[2017-07-07] MEDS: REMOVE OLD NICODERM (NICOTINE) PATCH T-DERMAL SCH (21:00)
[2017-07-07] MEDS ORDERED: OMEGA PO SCH (21:00)
[2017-07-07] MEDS: traZODone HCL 100 MG TAB PO SCH (21:00)
[2017-07-07] MEDS ORDERED: FATTY ACIDS PO SCH (21:00)
[2017-07-07] MEDS ORDERED: ZIPRASIDONE HCL 80 MG CAP PO SCH (21:00)
[2017-07-07] MEDS: FAMOTIDINE 20 MG TAB PO SCH (21:47)
[2017-07-07] MEDS: ATORVASTATIN 20 MG TAB PO SCH (21:47)
[2017-07-07] MEDS: POTASSIUM CHLORIDE 10 MEQ CONTROLLED RELEASE TAB PO SCH (21:47)
[2017-07-08 06:00] VITALS: BP 131/84; PULSE 88; RESP 16; TEMP 98.9; O2SAT 100
[2017-07-08] MEDS: LEVOTHYROXINE SODIUM 112 MCG TAB PO SCH (06:35)
[2017-07-08] MEDS: NICOTINE 21 MG/24 HR PATCH T-DERMAL SCH (08:29)
[2017-07-08] MEDS: FAMOTIDINE 20 MG TAB PO SCH ×2 (08:29→21:13)
[2017-07-08] MEDS: POTASSIUM CHLORIDE 10 MEQ CONTROLLED RELEASE TAB PO SCH ×2 (08:30→21:13)
[2017-07-08] MEDS: CALCIUM/VITAMIN D 250 MG/125 U TAB PO SCH ×2 (08:30→21:13)
[2017-07-08] MEDS: FUROSEMIDE 40 MG TAB PO SCH (08:30)
[2017-07-08] MEDS: ASPIRIN EC 81 MG TABEC PO SCH (08:31)
[2017-07-08] MEDS ORDERED: NON-FORMULARY DRUG (Quetiapine (Seroquel) 400 MG) PO SCH (09:00)
[2017-07-08] MEDS: ACETAMINOPHEN 325 MG TAB PO PRN (10:53)
--- NOTE | 2017-07-08 10:59 | PD.CONS ---
HPI Service [facility] Hospitalists Consult Requested By Dr. Rueda Reason for Consult Medical Management Primary Care Physician Unknown Diagnoses: (1) Bipolar disorder History of Present Illness 66-year-old female with history of bipolar disorder, anxiety, depression, fibromyalgia, cervical and lumbar DDD, hypertension, hypothyroidism, admitted to inpatient psych for acute manic episode. The patient is unable to recall events leading up to her admission. According to EMR, the patient's sister and [id number] were concerned about the patient as she was nonverbal, not following commands, mumbling/pacing, walking into linder. Reportedly the sister stated that the patient had a similar presentation when she was not taking her medications. The sister is concerned the patient's boyfriend may be stealing her medications and money. Hospitalist was consulted for medical management. She tells me today that her thoughts are racing. Upon review of systems, she complains of a mild global headache. Denies any visual changes, lightheadedness , dizziness, fever/chills, chest pain, shortness breath, or abdominal complaints. She is not able to recall all of the medications she takes on a regular basis. She is requesting her nasal spray be restarted which she believes is Flonase. She states she is on lasix for leg swelling but denies any history of CHF. She has no other medical complaints at this time. Review of Systems Except as stated in HPI: all other systems reviewed are Neg Past Family Social History Allergies: Coded Allergies: Sulfa (Sulfonamide Antibiotics) (Unverified Allergy, Severe, 05/15/17) erythromycin base (Unverified Allergy, Severe, 05/15/17) penicillin G (Unverified Allergy, Severe, 05/15/17) Past Medical History bipolar disorder anxiety depression fibromyalgia cervical and lumbar DDD hypertension hypothyroidism seasonal allergies chronic dependent edema bilateral lower extremities Past Surgical History Cholecystectomy Hysterectomy Tonsillectomy Hiatal hernia Left wrist fracture ORIF Reported Medications Geodon (Ziprasidone) 80 Mg Cap 240 Mg PO HS Trazodone (Trazodone HCl) 100 Mg Tablet 100 Mg PO HS Zanaflex (Tizanidine HCl) 4 Mg Tab 4 Mg PO TID Zantac (Ranitidine HCl) 300 Mg Tab 300 Mg PO HS Evista (Raloxifene HCl) 60 Mg Tab 60 Mg PO DAILY Seroquel (Quetiapine Fumarate) 400 Mg Tab 400 Mg PO DAILY Metamucil Smooth Texture (Psyllium Hydrophilic Mucilloid) 3.4 Gram Pow 3.4 Gm PO DAILY Klor-Con 10 (Potassium Chloride) 10 Meq Tab 10 Meq PO BID Miralax Powder (Polyethylene Glycol 3350 Powder) 17 Gm Powd 17 Gm PO DAILY Mix and dissolve one measuring capful (17 grams) in water or juice. Alpha-3 (Alpha-3 Fatty Acids) 1,000 Mg Capsule 1,000 Mg PO BID Multi-Vitamin/Minerals (Multiple Vitamins W/ Minerals) 1 Tab Tab 1 Tab PO DAILY Remeron (Mirtazapine) 30 Mg Tab 30 Mg PO HS Levothyroxine (Levothyroxine Sodium) 112 Mcg Tab 112 Mcg PO DAILY Lasix (Furosemide) 40 Mg Tab 40 Mg PO DAILY Citracal+D3 (Cvzqyqf-Ciafqkzeaw-Wyclxzx D) 250-107-500 Mg-Mg-Unit Chew 1 Chew PO BID Lipitor (Atorvastatin Calcium) 20 Mg Tab 20 Mg PO HS Aspirin Adult Low Strength (Aspirin) 81 Mg Tabdr 81 Mg PO DAILY Percocet (Oxycodone-Acetaminophen) 7.5-325 mg Tab 1 Tab PO Q6H PRN Active Ordered Medications Current Medications Medications (Trade) Dose Ordered Sig/Gabriela Route Start Time Stop Time Status Last Admin (Ecotrin Ec) 81 mg DAILY PO 07/08/17 09:00 07/08/17 08:31 (Lipitor) 20 mg HS PO 07/07/17 21:00 07/07/17 21:47 (Lasix) 40 mg DAILY PO 07/08/17 09:00 07/08/17 08:30 (Synthroid) 112 mcg DAILY@0600 PO 07/08/17 06:00 07/08/17 06:35 (Remeron Soltab Odt) 30 mg HS PO 07/07/17 21:00 Future Hold (KCl) 10 meq BID PO 07/07/17 21:00 07/08/17 08:30 (Zanaflex) 4 mg TID PO 07/08/17 09:00 07/08/17 08:30 (Oscal-D 250-125) 2 mg BID PO 07/07/17 21:00 07/08/17 08:30 Patient Own Medication PT OWN MED: (Omeg... BID PO 07/07/17 21:00 Future Hold (Pepcid) 20 mg BID PO 07/07/17 21:00 07/08/17 08:29 (Desyrel) 100 mg HS PO 07/07/17 21:00 Future Hold (Geodon) 80 mg BID PO 07/07/17 21:00 Future Hold (Ativan) 1 mg Q6H PRN PO 07/07/17 19:00 Future Hold (Ativan Inj) 1 mg Q6H PRN IM 07/07/17 19:00 Future Hold (Ativan) 0.5 mg Q12H PRN PO 07/07/17 19:00 Future Hold (Ativan Inj) 0.5 mg Q12H PRN IM 07/07/17 19:00 Future Hold (Tylenol) 650 mg Q4H PRN PO 07/07/17 19:00 07/08/17 10:53 (Milk Of Magnesia Liq) 30 ml DAILY PRN PO 07/07/17 19:00 (Mag-Al Plus Susp Liq) 30 ml Q6H PRN PO 07/07/17 19:00 (Habitrol 21 Mg Patch.24 Hr) 1 patch DAILY T-DERMAL 07/08/17 09:00 07/08/17 08:29 Miscellaneous Information 1 HS T-DERMAL 07/07/17 21:00 (SEROquel) 400 mg DAILY PO 07/08/17 09:00 Future Hold Family History Mother with colon cancer and lung cancer Father with heart disease, pericardial effusion that contained cancer cells, age 84 Social History Smokes tobacco, one PPD since age 18 Denies any alcohol use Denies any illicit drug use Physical Exam Vital Signs Vital Signs Date Time Temp Pulse Resp B/P (MAP) Pulse Ox O2 Delivery O2 Flow Rate FiO2 07/08/17 06:00 98.9 88 16 131/84 (100) 100 07/07/17 18:08 98.2 93 16 116/65 (82) 95 07/07/17 17:00 98.5 93 20 117/58 (77) 96 Physical Exam GENERAL: Well-nourished, well-developed female patient in NAD. SKIN: Warm and dry. No rash. HEAD: Normocephalic. Atraumatic. EYES: Pupils equal and round. No scleral icterus. No injection or drainage. ENT: No nasal bleeding or discharge. Mucous membranes pink and moist. NECK: Supple. Trachea midline. CARDIOVASCULAR: Regular rate and rhythm. S1, S2 noted. No murmur appreciated. RESPIRATORY: No accessory muscle use. Clear to auscultation. Breath sounds equal bilaterally. GASTROINTESTINAL: Abdomen soft, non-tender, nondistended. Normoactive bowel sounds x4. MUSCULOSKELETAL: No obvious deformities. 1+ BLE nonpitting edema. NEUROLOGICAL: Awake and alert. No obvious cranial nerve deficits. Motor grossly within normal limits. Normal speech. Assessment and Plan Assessment and Plan 66-year-old female with history of bipolar disorder, anxiety, depression, fibromyalgia, cervical and lumbar DDD, hypertension, hypothyroidism, admitted to inpatient psych for acute manic episode. Manic Episode, Bipolar Disorder: patient's family found patient nonverbal, not following commands, mumbling, pacing, walking into linder; similar to previous manic episodes. UDS and UA negative. -Continue management per psychiatry -Currently on seroquel, trazodone Headache: mild, no focal neurologic deficit -continue tylenol prn -monitor for improvement Hypertension: chronic, BP fairly well controlled -monitor BP, add antihypertensives as needed Hyperlipidemia: chronic -continue patient's statin Chronic Lower Extremity Edema: chronic. No hx of CHF. 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
[2017-07-08] MEDS: FLUTICASONE PROPIONATE 50 MCG/ACT 16 GM NASAL SPRAY EACH NARE SCH (11:30)
--- NOTE | 2017-07-08 14:45 | HHI.HP ---
Provisional Diagnosis Admission Date Jul 07, 2017 at 16:50 Ward I. Bipolar disorder current episode ihsan moderate without psychosis F 31.12, delirium resolving r 41.0 Certification of Person's Competence To Provide Express and Informed Consent I have personally examined Mansi Jay , a person being served at [facility] on, Jul 08, 2017 14:29. Express and informed consent means consent voluntarily given in writing, by a competent person, after sufficient explanation and disclosure of the subject matter involved to enable the person to make a knowing and willful decision without any element of force, fraud, deceit, duress, or other form of constraint or coercion. This person is 18 years of age or older, is not now known to be incompetent to consent to treatment with a guardian advocate, and does not have a health care surrogate or proxy currently making medical treatment decisions. I have found this person to be one of the following: [xxx] Competent to provide express and informed consent, as defined above, for voluntary admission to this facility and is competent to provide express and informed consent for treatment. He/she has the consistent capacity to make well reasoned, willful, and knowing decisions concerning his or her medical or mental health treatment. The person fully and consistently understands the purpose of the admission for examination/placement and is fully capable of personally exercising all rights assured [place] [] Incompetent to provide express and informed consent to voluntary admission, and this is incompetent to provide express and informed consent to treatment. The person must be transferred to involuntary status and a petition for a guardian advocate filed with the Circuit Court. [] Refusing to provide express and informed consent to voluntary admission but is competent to provide express and informed consent for treatment. The person must be discharged or transferred to involuntary status. Form shall be completed within 24 hours of a person's arrival at the receiving facility and filed in the clinical record of each person: 1. Admitted on a voluntary basis 2. Permitted to provide express and informed consent to his/her own treatment 3. Allowed to transfer from involuntary to voluntary status 4. Prior to permitting a person to consent to his or her own treatment after having been previously found incompetent to consent to treatment. History of Present Illness Capacity: Has Capacity HPI Patient is a 66-year-old white female comes here under Monsivais act from [facility] by Dr. Mon dated 07/07/17 at 11:50 AM stating patient has an extensive history of bipolar multiple hospitalizations neglecting herself, patient was admitted to the observation unit on 07/06/17 through 07/07/17 under visit [id number] patient had rhabdomyolysis other metabolic issues. She was treated by the medicine service, although is a psychiatric consultation with Dr. Mon with the time he saw her she was still with an altered mental status and he recommended the Monsivais act and transfer to the psychiatric unit once medically cleared. Patient urine toxicology was negative blood-alcohol level was negative also. At the present time patient resting quietly in her bed nurse practitioner Jewell medical student Jaren and nurse Pal present throughout session patient is somewhat heavyset white female appears stated age. She is alert well oriented in all 4 spheres. Patient acknowledges being a being bipolar with multiple prior psychiatric hospitalizations most recently being through [facility] a few weeks 2 months ago she Monsivais acted and transferred to a hospital in [place]. She states she lives by herself but has a "fianc" who is frequently over it appears that both level the same apartment building. She states she at times may help her with her medication. She does state she stopped taking medication for a few days prior to this. She also has a supportive sister and brother-in- law who assist her. Though it appears they have a somewhat conflictual relationship. Patient does see Dr. Juan Manuel Marcos in the community she's been seeing him for significant period of time. She denies any alcohol or drug use. She denies any physical or sexual abuse. She states his most mental health issues and addictions in the family. Patient states she has been 5 times has 1 adult child. At this time I feel patient does meet criteria for further observation assessment. However I do feel she does have capacity to sign for readmission and her medication list I'll lift the Monsivais act allow her sign voluntary we continue to have a hospitalist consult with us. Hopeless to be fairly short stay and attention the patient to the community to follow-up with her own psychiatrist Review of Systems Except as stated in HPI: all other systems reviewed are Neg Past Psych History Psychological trauma history Patient denies physical or sexual abuse Violence risk - others (6 mos) Low Violence risk - self (6 mos) Low Substance Abuse History Drugs/Alcohol past 12 months Patient denies Past Family Social History Coded Allergies: Sulfa (Sulfonamide Antibiotics) (Unverified Allergy, Severe, 05/15/17) erythromycin base (Unverified Allergy, Severe, 05/15/17) penicillin G (Unverified Allergy, Severe, 05/15/17) Reported Medications Ziprasidone (Geodon) 80 Mg Cap, 240 MG PO HS, #60 CAP 0 Refills 07/06/17 Trazodone (Trazodone) 100 Mg Tablet, 100 MG PO HS for Control Depression, #30 TAB 0 Refills 07/06/17 Tizanidine (Zanaflex) 4 Mg Tab, 4 MG PO TID for Muscle Spasm, TAB 0 Refills 07/06/17 Ranitidine (Zantac) 300 Mg Tab, 300 MG PO HS, TAB 0 Refills 07/06/17 Raloxifene (Evista) 60 Mg Tab, 60 MG PO DAILY for Chemotherapy Management, #30 TAB 0 Refills 07/06/17 Quetiapine (Seroquel) 400 Mg Tab, 400 MG PO DAILY, #30 TAB 0 Refills 07/06/17 Psyllium Powder (Metamucil Smooth Texture) 3.4 Gram Pow, 3.4 GM PO DAILY 07/06/17 Potassium Chloride ER (Klor-Con 10) 10 Meq Tab, 10 MEQ PO BID for Electrolyte Replacement, #60 TAB 0 Refills 07/06/17 Polyethylene Glycol 3350 Powder (Miralax Powder) 17 Gm Powd, 17 GM PO DAILY for Constipation, #1 CAN 0 Refills Mix and dissolve one measuring capful (17 grams) in water or juice. 07/06/17 Hartford-3 Fatty Acids (Hartford-3) 1,000 Mg Capsule, 1000 MG PO BID for Nutritional Supplement 07/06/17 Multiple Vitamins W/ Minerals (Multi-Vitamin/Minerals) 1 Tab Tab, 1 TAB PO DAILY for Nutritional Supplement 07/06/17 Mirtazapine (Remeron) 30 Mg Tab, 30 MG PO HS for Depression Control, #30 TAB 0 Refills 07/06/17 Levothyroxine (Levothyroxine) 112 Mcg Tab, 112 MCG PO DAILY for Thyroid, #30 TAB 0 Refills 07/06/17 Furosemide (Lasix) 40 Mg Tab, 40 MG PO DAILY, #30 TAB 0 Refills 07/06/17 Xiibdli-Ogbmjhesqr-Dyhxonu D (Citracal+D3) 250-107-500 Mg-Mg-Unit Chew, 1 CHEW PO BID, TAB 07/06/17 Atorvastatin (Lipitor) 20 Mg Tab, 20 MG PO HS for Cholesterol Management, #30 TAB 0 Refills 07/06/[address] (Aspirin Adult Low Strength) 81 Mg Tabdr, 81 MG PO DAILY, TAB 07/06/17 Oxycodone-Acetaminophen (Percocet) 7.5-325 mg Tab, 1 TAB PO Q6H Y for SEVERE PAIN, TAB 0 Refills 07/06/17 Discontinued Reported Medications Clonazepam (Klonopin) 1 Mg Tab, 1 MG PO TID, #90 TAB 0 Refills 07/06/17 Current Medications Medications (Trade) Dose Ordered Sig/Gabriela Route Start Time Stop Time Status Last Admin (Ecotrin Ec) 81 mg DAILY PO 07/08/17 09:00 07/08/17 08:31 (Lipitor) 20 mg HS PO 07/07/17 21:00 07/07/17 21:47 (Lasix) 40 mg DAILY PO 07/08/17 09:00 07/08/17 08:30 (Synthroid) 112 mcg DAILY@0600 PO 07/08/17 06:00 07/08/17 06:35 (Remeron Soltab Odt) 30 mg HS PO 07/07/17 21:00 Future Hold (KCl) 10 meq BID PO 07/07/17 21:00 07/08/17 08:30 (Zanaflex) 4 mg TID PO 07/08/17 09:00 07/08/17 14:18 (Oscal-D 250-125) 2 mg BID PO 07/07/17 21:00 07/08/17 08:30 Patient Own Medication PT OWN MED: (Omeg... BID PO 07/07/17 21:00 Future Hold (Pepcid) 20 mg BID PO 07/07/17 21:00 07/08/17 08:29 (Desyrel) 100 mg HS PO 07/07/17 21:00 Future Hold (Geodon) 80 mg BID PO 07/07/17 21:00 Future Hold (Ativan) 1 mg Q6H PRN PO 07/07/17 19:00 Future Hold (Ativan Inj) 1 mg Q6H PRN IM 07/07/17 19:00 Future Hold (Ativan) 0.5 mg Q12H PRN PO 07/07/17 19:00 Future Hold (Ativan Inj) 0.5 mg Q12H PRN IM 07/07/17 19:00 Future Hold (Tylenol) 650 mg Q4H PRN PO 07/07/17 19:00 07/08/17 10:53 (Milk Of Magnesia Liq) 30 ml DAILY PRN PO 07/07/17 19:00 (Mag-Al Plus Susp Liq) 30 ml Q6H PRN PO 07/07/17 19:00 (Habitrol 21 Mg Patch.24 Hr) 1 patch DAILY T-DERMAL 07/08/17 09:00 07/08/17 08:29 Miscellaneous Information 1 HS T-DERMAL 07/07/17 21:00 (SEROquel) 400 mg DAILY PO 07/08/17 09:00 Future Hold (Flonase Rg Spr) 2 spray DAILY EACH NARE 07/08/17 11:30 07/08/17 11:30 Family Psych History Patient states mental health history in her family with her mother Social History Patient is been 5 times his 1 adult daughter now has the occasional live -in boyfriend who she states his "memory" problems Patient's Strengths (min. 2) Patient verbal labile axis healthcare cooperative Physical Exam She medically cleared through hospitalization as mentioned above, at the present time patient resting quietly in her bed she is in no acute distress, she is in no respiratory distress, though complains abdominal pain. Patient moving all 4 extremities without difficulty. No abnormal motor movements noted Vital Signs Vital Signs Date Time Temp Pulse Resp B/P (MAP) Pulse Ox O2 Delivery O2 Flow Rate FiO2 07/08/17 06:00 98.9 88 16 131/84 (100) 100 I/O 07/08/17 07/08/17 07/09/17 08:00 16:00 00:00 Intake Total 240 ml Balance 240 ml Mental Status Examination Appearance: Appropriate Consciousness: Alert Orientation: x4 Motor Activity: Normal gait Speech: Unremarkable Language: Adequate Fund of Knowledge: Adequate Attention and Concentration: Adequate Memory: Unremarkable (some memory loss related to her admission) Mood: Other (euthymic to mildly dysphoric) Affect: Other (slight decreased range and intensity) Thought Process & Associations: Intact Thought Content: Appropriate Hallucination Type: None Delusion Type: None Suicidal Ideation: No Suicidal Plan: No Suicidal Intention: No Homicidal Ideation: No Homicidal Plan: No Homicidal Intention: No Insight: Fair Judgment: Impulsive Assessment & Plan Problem List: (1) Bipolar disorder ICD Codes: F31.9 - Bipolar disorder, unspecified Status: Chronic (2) Delirium ICD Codes: R41.0 - Disorientation, unspecified Status: Resolved Assessment & Plan Estimated LOS: 3-5 days patient doesn't meet criteria for further inpatient psychiatric assessment though I felt she does have capacity. Also lift the Monsivais act allow patient to sign voluntary. Will continue medication as to the med reconciliation. Hospice consult with us. PT consult. Discharge Planning Probable return home to her own apartment Request HC Surrog/Guard Advoc?: No Problem Qualifiers (1) Bipolar disorder: Qualified Codes: F31.12 - Bipolar disorder, current episode manic without psychotic features, moderate Pedro Wagner MD Jul 08, 2017 14:44
[2017-07-08 18:42] VITALS: BP 142/71; PULSE 80; RESP 16; TEMP 98.8; O2SAT 98
[2017-07-08] MEDS: REMOVE OLD NICODERM (NICOTINE) PATCH T-DERMAL SCH (21:00)
[2017-07-08] MEDS: traZODone HCL 100 MG TAB PO SCH (21:13)
[2017-07-08] MEDS: ZIPRASIDONE HCL 80 MG CAP PO SCH (21:13)
[2017-07-08] MEDS: ATORVASTATIN 20 MG TAB PO SCH (21:13)
[2017-07-08] MEDS: MIRTAZAPINE ODT 30 MG TAB PO SCH (23:37)
[2017-07-09 06:16] VITALS: BP 154/69; PULSE 89; RESP 16; TEMP 98.4; O2SAT 97
[2017-07-09] MEDS: LEVOTHYROXINE SODIUM 112 MCG TAB PO SCH (06:25)
[2017-07-09] MEDS: NICOTINE 21 MG/24 HR PATCH T-DERMAL SCH ×2 (09:00→09:06)
[2017-07-09] MEDS: CALCIUM/VITAMIN D 250 MG/125 U TAB PO SCH ×2 (09:00→20:27)
[2017-07-09] MEDS: MULTIVITAMIN TAB PO SCH (09:00)
[2017-07-09] MEDS: ZIPRASIDONE HCL 80 MG CAP PO SCH ×2 (09:03→20:27)
[2017-07-09] MEDS: ASPIRIN EC 81 MG TABEC PO SCH (09:03)
[2017-07-09] MEDS: FUROSEMIDE 40 MG TAB PO SCH (09:03)
[2017-07-09] MEDS: FAMOTIDINE 20 MG TAB PO SCH ×2 (09:03→20:27)
[2017-07-09] MEDS: POTASSIUM CHLORIDE 10 MEQ CONTROLLED RELEASE TAB PO SCH ×2 (09:04→20:27)
[2017-07-09] MEDS: QUEtiapine FUMARATE 200 MG TAB PO SCH (09:04)
[2017-07-09] MEDS: FLUTICASONE PROPIONATE 50 MCG/ACT 16 GM NASAL SPRAY EACH NARE SCH (09:06)
--- NOTE | 2017-07-09 14:09 | HHI.PR ---
Subjective Remarks Follow up for bipolar, hypertension. The patient is seen in the day room. Discussed with RN. She complained of some neck spasms/tightness earlier today, relieved after receiving zanaflex. She feels much better. She has no other medical complaints including no headache, cough, congestion, chest pain, shortness of breath, or abdominal complaints. Objective Vitals Vital Signs Date Time Temp Pulse Resp B/P (MAP) Pulse Ox O2 Delivery O2 Flow Rate FiO2 07/09/17 06:16 98.4 89 16 154/69 (97) 97 07/08/17 18:42 98.8 80 16 142/71 (94) 98 I/O 07/08/17 07/08/17 07/08/17 07/09/17 07/09/17 07/09/17 07:00 15:00 23:00 07:00 15:00 23:00 Intake Total 240 ml 720 ml Balance 240 ml 720 ml Intake Oral 240 ml 720 ml # Voids 2 1 2 # Bowel Movements 0 Objective Remarks GENERAL: Well-nourished, well-developed female patient in [facility]. SKIN: Warm and dry. No rash. HEENT: Normocephalic. Atraumatic.Pupils equal and round. Mucous membranes pink and moist. NECK: Supple. Trachea midline. CARDIOVASCULAR: Regular rate and rhythm. S1, S2 noted. No murmur appreciated. RESPIRATORY: No accessory muscle use. Clear to auscultation. Breath sounds equal bilaterally. GASTROINTESTINAL: Abdomen soft, non-tender, nondistended. Normoactive bowel sounds x4. MUSCULOSKELETAL: No obvious deformities. Trace BLE nonpitting edema, improved. NEUROLOGICAL: Awake and alert. No obvious cranial nerve deficits. Motor grossly within normal limits. Normal speech. Medications and IVs Current Medications Medications (Trade) Dose Ordered Sig/Gabriela Route Start Time Stop Time Status Last Admin (Ecotrin Ec) 81 mg DAILY PO 07/08/17 09:00 07/09/17 09:03 (Lipitor) 20 mg HS PO 07/07/17 21:00 07/08/17 21:13 (Lasix) 40 mg DAILY PO 07/08/17 09:00 07/09/17 09:03 (Synthroid) 112 mcg DAILY@0600 PO 07/08/17 06:00 07/09/17 06:25 (Remeron Soltab Odt) 30 mg HS PO 07/07/17 21:00 Future hold 07/08/17 23:37 (KCl) 10 meq BID PO 07/07/17 21:00 07/09/17 09:04 (Zanaflex) 4 mg TID PO 07/08/17 09:00 07/09/17 12:40 (Oscal-D 250-125) 2 mg BID PO 07/07/17 21:00 07/08/17 21:13 Patient Own Medication PT OWN MED: (Omeg... BID PO 07/07/17 21:00 Future Hold (Pepcid) 20 mg BID PO 07/07/17 21:00 07/09/17 09:03 (Desyrel) 100 mg HS PO 07/07/17 21:00 Future hold 07/08/17 21:13 (Geodon) 80 mg BID PO 07/07/17 21:00 Future hold 07/09/17 09:03 (Ativan) 1 mg Q6H PRN PO 07/07/17 19:00 Future hold 07/09/17 00:21 (Ativan Inj) 1 mg Q6H PRN IM 07/07/17 19:00 Future hold (Ativan) 0.5 mg Q12H PRN PO 07/07/17 19:00 Future hold (Ativan Inj) 0.5 mg Q12H PRN IM 07/07/17 19:00 Future hold (Tylenol) 650 mg Q4H PRN PO 07/07/17 19:00 07/08/17 10:53 (Milk Of Magnesia Liq) 30 ml DAILY PRN PO 07/07/17 19:00 (Mag-Al Plus Susp Liq) 30 ml Q6H PRN PO 07/07/17 19:00 (Habitrol 21 Mg Patch.24 Hr) 1 patch DAILY T-DERMAL 07/08/17 09:00 07/09/17 09:06 Miscellaneous Information 1 HS T-DERMAL 07/07/17 21:00 07/08/17 21:00 (SEROquel) 400 mg DAILY PO 07/08/17 09:00 Future hold 07/09/17 09:04 (Flonase Rg Spr) 2 spray DAILY EACH NARE 07/08/17 11:30 07/09/17 09:06 (Habitrol 21 Mg Patch.24 Hr) 1 patch DAILY T-DERMAL 07/09/17 09:00 (Theragran) 1 tab DAILY PO 07/09/17 09:00 07/09/17 09:00 A/P Problem List: (1) Bipolar disorder ICD Code: F31.9 - Bipolar disorder, unspecified Status: Chronic Assessment and Plan 66-year-old female with history of bipolar disorder, anxiety, depression, fibromyalgia, cervical and lumbar DDD, hypertension, hypothyroidism, admitted to inpatient psych for acute manic episode. Manic Episode, Bipolar Disorder: patient's family found patient nonverbal, not following commands, mumbling, pacing, walking into linder; similar to previous manic episodes. UDS and UA negative. -Continue management per psychiatry -Currently on seroquel, trazodone Headache: mild, no focal neurologic deficit -continue tylenol prn -monitor for improvement -resolved Hypertension: chronic, BP fairly well controlled -monitor BP, add antihypertensives as needed Hyperlipidemia: chronic -continue patient's statin Chronic Lower Extremity Edema: chronic. No hx of CHF. -continue patient's lasix with KCl replacement -encourage elevation of legs while seated -improved Hypothyroidism: chronic -continue patient's synthroid Elevated CK: suspect stress reaction -CPK 468 --> 294 --> 191 -resolved CKD stage II: chronic, appears at baseline -avoid nephrotoxins -encourage oral hydration -caution with lasix Seasonal Allergies: chronic -continue patient's nasal spray DVT Prophylaxis: ambulation Discharge Planning The patient is medically stable at this time, will sign off. Please contact [facility] or reconsult as needed. Problem Qualifiers (1) Bipolar disorder: Qualified Codes: F31.12 - Bipolar disorder, current episode manic without psychotic features, moderate Allie Cummins PA-C Jul 09, 2017 2:09 pm
--- NOTE | 2017-07-09 14:18 | HHI.PYPN ---
Subjective Remarks Patient seen in her room with nurse practitioner Jewell and nurse Sowmya, patient alert fairly well oriented, compliant with her medications, appears somewhat disorganized tangential, she is mildly hyperverbal also. When asked but her living situation she was initially vague then imply that she may be living in some type of a and loss apartment with her son. We need to verify this. He also attempt to contact Dr. Juan Manuel Marcos patient's outpatient psychiatrist to discuss case with him I have also reviewed patient's medications and discontinue the multiple when necessary Ativan orders Review of Systems Except as stated in HPI: all other systems reviewed are Neg Mental Status Examination Appearance: Appropriate Consciousness: Alert Orientation: x4 Motor Activity: Normal gait Speech: Unremarkable Language: Adequate Fund of Knowledge: Adequate Attention and Concentration: Adequate Memory: Unremarkable (some memory loss related to her admission) Mood: Other (euthymic to mildly dysphoric) Affect: Other (slight decreased range and intensity) Thought Process & Associations: Intact Thought Content: Appropriate Hallucination Type: None Delusion Type: None Suicidal Ideation: No Suicidal Plan: No Suicidal Intention: No Homicidal Ideation: No Homicidal Plan: No Homicidal Intention: No Insight: Fair Judgment: Impulsive Results Vitals/IOs Vital Signs Date Time Temp Pulse Resp B/P (MAP) Pulse Ox O2 Delivery O2 Flow Rate FiO2 07/09/17 06:16 98.4 89 16 154/69 (97) 97 Assessment & Plan Problem List: (1) Bipolar disorder ICD Codes: F31.9 - Bipolar disorder, unspecified Status: Chronic (2) Delirium ICD Codes: R41.0 - Disorientation, unspecified Status: Resolved Assessment & Plan Estimated LOS: days patient somewhat calmer today but also somewhat more disorganized. For now continue treatment. Compliant medication I did review medications we'll discontinue the multiple lorazepam when necessary orders Justification for Cont. Inpt. This time patient decompensated placed a lower level of care Discharge Planning Probable return to her apartment in her son's home Request HC Surrog/Guard Advoc?: No Problem Qualifiers (1) Bipolar disorder: Qualified Codes: F31.12 - Bipolar disorder, current episode manic without psychotic features, moderate Pedro Wagner MD Jul 09, 2017 14:18
[2017-07-09 17:07] VITALS: BP 145/73; PULSE 79; RESP 18; TEMP 98.4; O2SAT 100
[2017-07-09] MEDS: ACETAMINOPHEN 325 MG TAB PO PRN (17:54)
[2017-07-09] MEDS: REMOVE OLD NICODERM (NICOTINE) PATCH T-DERMAL SCH (20:25)
[2017-07-09] MEDS: MIRTAZAPINE ODT 30 MG TAB PO SCH (20:27)
[2017-07-09] MEDS: ATORVASTATIN 20 MG TAB PO SCH (20:27)
[2017-07-09] MEDS: traZODone HCL 100 MG TAB PO SCH (20:27)
[2017-07-09] MEDS: LORazepam 0.5 MG TAB PO PRN (23:24)
[2017-07-10] MEDS: LEVOTHYROXINE SODIUM 112 MCG TAB PO SCH (05:36)
[2017-07-10 05:42] VITALS: BP 141/68; PULSE 85; RESP 18; TEMP 97.9; O2SAT 94
[2017-07-10] MEDS: CALCIUM/VITAMIN D 250 MG/125 U TAB PO SCH ×2 (09:00→22:41)
[2017-07-10] MEDS: NICOTINE 21 MG/24 HR PATCH T-DERMAL SCH (09:22)
[2017-07-10] MEDS: FLUTICASONE PROPIONATE 50 MCG/ACT 16 GM NASAL SPRAY EACH NARE SCH (09:22)
[2017-07-10] MEDS: ASPIRIN EC 81 MG TABEC PO SCH (09:23)
[2017-07-10] MEDS: ZIPRASIDONE HCL 80 MG CAP PO SCH ×2 (09:23→21:28)
[2017-07-10] MEDS: POTASSIUM CHLORIDE 10 MEQ CONTROLLED RELEASE TAB PO SCH ×2 (09:23→21:29)
[2017-07-10] MEDS: MULTIVITAMIN TAB PO SCH (09:23)
[2017-07-10] MEDS: FUROSEMIDE 40 MG TAB PO SCH (09:23)
[2017-07-10] MEDS: QUEtiapine FUMARATE 200 MG TAB PO SCH (09:24)
[2017-07-10] MEDS: ACETAMINOPHEN 325 MG TAB PO PRN ×2 (09:24→22:43)
[2017-07-10] MEDS: FAMOTIDINE 20 MG TAB PO SCH (09:25)
--- NOTE | 2017-07-10 12:34 | HHI.PYPN ---
Subjective Remarks Patient seen today in her room with nurse Somwya, patient somewhat sedated and drowsy this morning though arousable to calm and cooperative with me. She has been compliant with the medication. Will split dose of Seroquel to 200 mg twice a day Review of Systems Except as stated in HPI: all other systems reviewed are Neg Mental Status Examination Appearance: Appropriate Consciousness: Alert Orientation: x4 Motor Activity: Normal gait Speech: Unremarkable Language: Adequate Fund of Knowledge: Adequate Attention and Concentration: Adequate Memory: Unremarkable (some memory loss related to her admission) Mood: Other (euthymic to mildly dysphoric) Affect: Other (slight decreased range and intensity) Thought Process & Associations: Intact Thought Content: Appropriate Hallucination Type: None Delusion Type: None Suicidal Ideation: No Suicidal Plan: No Suicidal Intention: No Homicidal Ideation: No Homicidal Plan: No Homicidal Intention: No Insight: Fair Judgment: Impulsive Results Vitals/IOs Vital Signs Date Time Temp Pulse Resp B/P (MAP) Pulse Ox O2 Delivery O2 Flow Rate FiO2 07/10/17 05:42 97.9 85 18 141/68 (92) 94 Intake and Output 07/10/17 07/10/17 07/11/17 08:00 16:00 00:00 Intake Total 120 ml 240 ml Balance 120 ml 240 ml Assessment & Plan Problem List: (1) Bipolar disorder ICD Codes: F31.9 - Bipolar disorder, unspecified Status: Chronic (2) Delirium ICD Codes: R41.0 - Disorientation, unspecified Status: Resolved Assessment & Plan Estimated LOS: days patient calm today though somewhat sedated. Compliant medication. Will change Seroquel to 200 mg twice a day from 400 mg a.m. Justification for Cont. Inpt. At this time patient will decompensate if placed in a lower level of care Discharge Planning At this time patient placement somewhat problematic Request HC Surrog/Guard Advoc?: No Problem Qualifiers (1) Bipolar disorder: Qualified Codes: F31.12 - Bipolar disorder, current episode manic without psychotic features, moderate Pedro Wagner MD Jul 10, 2017 12:34
[2017-07-10] MEDS: LORazepam 0.5 MG TAB PO PRN (16:11)
[2017-07-10 17:49] VITALS: BP 119/60; PULSE 82; RESP 18; TEMP 98.3; O2SAT 95
[2017-07-10] MEDS: REMOVE OLD NICODERM (NICOTINE) PATCH T-DERMAL SCH (21:00)
[2017-07-10] MEDS: MIRTAZAPINE ODT 30 MG TAB PO SCH (21:28)
[2017-07-10] MEDS: ATORVASTATIN 20 MG TAB PO SCH (21:28)
[2017-07-10] MEDS: traZODone HCL 100 MG TAB PO SCH (21:28)
[2017-07-11] MEDS: LEVOTHYROXINE SODIUM 112 MCG TAB PO SCH (04:36)
[2017-07-11] MEDS: ACETAMINOPHEN 325 MG TAB PO PRN ×2 (04:37→17:45)
[2017-07-11 05:00] VITALS: BP 142/69; PULSE 77; RESP 15; TEMP 97.7; O2SAT 100
[2017-07-11] MEDS: QUEtiapine FUMARATE 200 MG TAB PO SCH ×2 (08:27→20:21)
[2017-07-11] MEDS: FUROSEMIDE 40 MG TAB PO SCH (08:27)
[2017-07-11] MEDS: ASPIRIN EC 81 MG TABEC PO SCH (08:28)
[2017-07-11] MEDS: MULTIVITAMIN TAB PO SCH (08:28)
[2017-07-11] MEDS: CALCIUM/VITAMIN D 250 MG/125 U TAB PO SCH ×2 (08:28→20:22)
[2017-07-11] MEDS: POTASSIUM CHLORIDE 10 MEQ CONTROLLED RELEASE TAB PO SCH ×2 (08:28→20:21)
[2017-07-11] MEDS: FAMOTIDINE 20 MG TAB PO SCH (08:29)
[2017-07-11] MEDS: FLUTICASONE PROPIONATE 50 MCG/ACT 16 GM NASAL SPRAY EACH NARE SCH (08:30)
[2017-07-11] MEDS: ZIPRASIDONE HCL 80 MG CAP PO SCH ×2 (08:30→20:22)
[2017-07-11] MEDS: NICOTINE 21 MG/24 HR PATCH T-DERMAL SCH (08:33)
--- NOTE | 2017-07-11 13:03 | HHI.PYPN ---
Subjective Remarks Patient seen in her room with nurse Donnell medical student Jaren, chart review, patient compliant medications. Patient somewhat more alert and pleasant today with me. Denies suicidality homicidality voices or visions. States she's had some problems sleeping. Will increase trazodone to 150 mg at bedtime For now continue treatment Review of Systems Except as stated in HPI: all other systems reviewed are Neg Mental Status Examination Appearance: Appropriate Consciousness: Alert Orientation: x4 Motor Activity: Normal gait Speech: Unremarkable Language: Adequate Fund of Knowledge: Adequate Attention and Concentration: Adequate Memory: Unremarkable (some memory loss related to her admission) Mood: Other (euthymic to mildly dysphoric) Affect: Other (slight decreased range and intensity) Thought Process & Associations: Intact Thought Content: Appropriate Hallucination Type: None Delusion Type: None Suicidal Ideation: No Suicidal Plan: No Suicidal Intention: No Homicidal Ideation: No Homicidal Plan: No Homicidal Intention: No Insight: Fair Judgment: Impulsive Results Vitals/IOs Vital Signs Date Time Temp Pulse Resp B/P (MAP) Pulse Ox O2 Delivery O2 Flow Rate FiO2 07/11/17 05:00 97.7 77 15 142/69 (93) 100 Intake and Output 07/11/17 07/11/17 07/12/17 08:00 16:00 00:00 Intake Total 120 ml 240 ml Balance 120 ml 240 ml Assessment & Plan Problem List: (1) Bipolar disorder ICD Codes: F31.9 - Bipolar disorder, unspecified Status: Chronic (2) Delirium ICD Codes: R41.0 - Disorientation, unspecified Status: Resolved Assessment & Plan Estimated LOS: days patient somewhat calmer today complains of poor sleep will increase trazodone 150 mg at bedtime. Otherwise patient denies suicidality homicidality voices or visions. Justification for Cont. Inpt. With this time patient will decompensate of placed in a lower level of care Discharge Planning Return home Request HC Surrog/Guard Advoc?: No Problem Qualifiers (1) Bipolar disorder: Qualified Codes: F31.12 - Bipolar disorder, current episode manic without psychotic features, moderate Pedro Wagner MD Jul 11, 2017 13:03
[2017-07-11 16:38] VITALS: BP 121/64; PULSE 85; RESP 16; TEMP 98.3; O2SAT 100
[2017-07-11] MEDS: traZODone HCL 50 MG TAB PO SCH (20:21)
[2017-07-11] MEDS: ATORVASTATIN 20 MG TAB PO SCH (20:22)
[2017-07-11] MEDS: MIRTAZAPINE ODT 30 MG TAB PO SCH (20:22)
[2017-07-11] MEDS: REMOVE OLD NICODERM (NICOTINE) PATCH T-DERMAL SCH (21:00)
[2017-07-12] MEDS: LEVOTHYROXINE SODIUM 112 MCG TAB PO SCH (04:31)
[2017-07-12] MEDS: ACETAMINOPHEN 325 MG TAB PO PRN ×2 (04:32→20:59)
[2017-07-12 06:27] VITALS: BP 139/90; PULSE 89; RESP 18; TEMP 97.6; O2SAT 96
[2017-07-12] MEDS: POTASSIUM CHLORIDE 10 MEQ CONTROLLED RELEASE TAB PO SCH ×2 (08:10→20:59)
[2017-07-12] MEDS: ZIPRASIDONE HCL 80 MG CAP PO SCH ×2 (08:10→20:59)
[2017-07-12] MEDS: MULTIVITAMIN TAB PO SCH (08:10)
[2017-07-12] MEDS: QUEtiapine FUMARATE 200 MG TAB PO SCH ×2 (08:10→20:59)
[2017-07-12] MEDS: FUROSEMIDE 40 MG TAB PO SCH (08:10)
[2017-07-12] MEDS: FAMOTIDINE 20 MG TAB PO SCH (08:11)
[2017-07-12] MEDS: CALCIUM/VITAMIN D 250 MG/125 U TAB PO SCH ×2 (08:11→21:00)
[2017-07-12] MEDS: ASPIRIN EC 81 MG TABEC PO SCH (08:15)
[2017-07-12] MEDS: FLUTICASONE PROPIONATE 50 MCG/ACT 16 GM NASAL SPRAY EACH NARE SCH (08:15)
[2017-07-12] MEDS: NICOTINE 21 MG/24 HR PATCH T-DERMAL SCH (08:16)
--- NOTE | 2017-07-12 14:08 | HHI.PYPN ---
Subjective Remarks Pt seen and discussed with staff. She has been compliant with medications. She received trazodone for sleep and slept better last night. Thought process is a little more organized today per staff. She is cooperative with care. Mental Status Examination Appearance: Appropriate Consciousness: Alert Orientation: x4 Motor Activity: Normal gait Speech: Unremarkable Language: Adequate Fund of Knowledge: Adequate Attention and Concentration: Adequate Memory: Unremarkable (some memory loss related to her admission) Mood: Other (euthymic to mildly dysphoric) Affect: Other (slight decreased range and intensity) Thought Process & Associations: Tangential Thought Content: Appropriate Hallucination Type: None Delusion Type: None Suicidal Ideation: No Suicidal Plan: No Suicidal Intention: No Homicidal Ideation: No Homicidal Plan: No Homicidal Intention: No Insight: Fair Judgment: Impulsive Results Vitals/IOs Vital Signs Date Time Temp Pulse Resp B/P (MAP) Pulse Ox O2 Delivery O2 Flow Rate FiO2 07/12/17 06:27 97.6 89 18 139/90 (106) 96 Intake and Output 07/12/17 07/12/17 07/13/17 08:00 16:00 00:00 Intake Total 120 ml 240 ml Balance 120 ml 240 ml Assessment & Plan Problem List: (1) Bipolar disorder ICD Codes: F31.9 - Bipolar disorder, unspecified Status: Chronic (2) Delirium ICD Codes: R41.0 - Disorientation, unspecified Status: Resolved Assessment & Plan Pt improving. Continue current tx plan Estimated LOS: days Justification for Cont. Inpt. risk of decompensation Request HC Surrog/Guard Advoc?: No Problem Qualifiers (1) Bipolar disorder: Qualified Codes: F31.12 - Bipolar disorder, current episode manic without psychotic features, moderate Sandra Gaines MD Jul 12, 2017 14:08
[2017-07-12 18:19] VITALS: BP 115/64; PULSE 84; RESP 17; TEMP 98.6; O2SAT 96
[2017-07-12] MEDS: traZODone HCL 50 MG TAB PO SCH (20:58)
[2017-07-12] MEDS: MIRTAZAPINE ODT 30 MG TAB PO SCH (20:59)
[2017-07-12] MEDS: ATORVASTATIN 20 MG TAB PO SCH (20:59)
[2017-07-12] MEDS: REMOVE OLD NICODERM (NICOTINE) PATCH T-DERMAL SCH (21:00)
[2017-07-13] MEDS: LEVOTHYROXINE SODIUM 112 MCG TAB PO SCH (06:09)
[2017-07-13 06:21] VITALS: BP 140/72; PULSE 87; TEMP 97.7; O2SAT 95
[2017-07-13] MEDS: FLUTICASONE PROPIONATE 50 MCG/ACT 16 GM NASAL SPRAY EACH NARE SCH (08:34)
[2017-07-13] MEDS: ZIPRASIDONE HCL 80 MG CAP PO SCH ×2 (08:35→21:22)
[2017-07-13] MEDS: ASPIRIN EC 81 MG TABEC PO SCH (08:35)
[2017-07-13] MEDS: CALCIUM/VITAMIN D 250 MG/125 U TAB PO SCH ×2 (08:36→21:22)
[2017-07-13] MEDS: POTASSIUM CHLORIDE 10 MEQ CONTROLLED RELEASE TAB PO SCH ×2 (08:36→21:24)
[2017-07-13] MEDS: NICOTINE 21 MG/24 HR PATCH T-DERMAL SCH (08:36)
[2017-07-13] MEDS: FAMOTIDINE 20 MG TAB PO SCH (08:36)
[2017-07-13] MEDS: QUEtiapine FUMARATE 200 MG TAB PO SCH ×2 (08:36→21:22)
[2017-07-13] MEDS: MULTIVITAMIN TAB PO SCH (08:36)
[2017-07-13] MEDS: FUROSEMIDE 40 MG TAB PO SCH (08:36)
--- NOTE | 2017-07-13 14:41 | HHI.PYPN ---
Subjective Remarks Pt seen and discussed with staff. She has been compliant with her medications and care. Some paranoid ideations persist. No behavioral problems. No SI/HI Mental Status Examination Appearance: Appropriate Consciousness: Alert Orientation: x4 Motor Activity: Normal gait Speech: Unremarkable Language: Adequate Fund of Knowledge: Adequate Attention and Concentration: Adequate Memory: Unremarkable (some memory loss related to her admission) Mood: Other (euthymic to mildly dysphoric) Affect: Other (slight decreased range and intensity) Thought Process & Associations: Tangential Thought Content: Appropriate Hallucination Type: None Delusion Type: Paranoid (mild) Suicidal Ideation: No Suicidal Plan: No Suicidal Intention: No Homicidal Ideation: No Homicidal Plan: No Homicidal Intention: No Insight: Fair Judgment: Impulsive Results Vitals/IOs Vital Signs Date Time Temp Pulse Resp B/P (MAP) Pulse Ox O2 Delivery O2 Flow Rate FiO2 07/13/17 06:21 97.7 87 140/72 (94) 95 07/12/17 18:19 17 Intake and Output 07/13/17 07/13/17 07/14/17 08:00 16:00 00:00 Intake Total 0 ml Balance 0 ml Assessment & Plan Problem List: (1) Bipolar disorder ICD Codes: F31.9 - Bipolar disorder, unspecified Status: Chronic (2) Delirium ICD Codes: R41.0 - Disorientation, unspecified Status: Resolved Assessment & Plan Continue current tx plan. Estimated LOS: days Justification for Cont. Inpt. risk of decompensation Request HC Surrog/Guard Advoc?: No Problem Qualifiers (1) Bipolar disorder: Qualified Codes: F31.12 - Bipolar disorder, current episode manic without psychotic features, moderate Sandra Gaines MD Jul 13, 2017 14:41
[2017-07-13] MEDS: ACETAMINOPHEN 325 MG TAB PO PRN ×2 (15:16→21:26)
[2017-07-13 17:30] VITALS: BP 141/68; PULSE 78; RESP 16; TEMP 98.8; O2SAT 78
[2017-07-13] MEDS: REMOVE OLD NICODERM (NICOTINE) PATCH T-DERMAL SCH (21:00)
[2017-07-13] MEDS: traZODone HCL 50 MG TAB PO SCH (21:22)
[2017-07-13] MEDS: ATORVASTATIN 20 MG TAB PO SCH (21:23)
[2017-07-13] MEDS: MIRTAZAPINE ODT 30 MG TAB PO SCH (21:26)
[2017-07-14 05:29] VITALS: BP 132/73; PULSE 79; RESP 18; TEMP 98.6; O2SAT 96
[2017-07-14] MEDS: LEVOTHYROXINE SODIUM 112 MCG TAB PO SCH (06:23)
[2017-07-14] MEDS: ACETAMINOPHEN 325 MG TAB PO PRN ×2 (06:24→09:54)
[2017-07-14] MEDS: FUROSEMIDE 40 MG TAB PO SCH (08:34)
[2017-07-14] MEDS: POTASSIUM CHLORIDE 10 MEQ CONTROLLED RELEASE TAB PO SCH (08:34)
[2017-07-14] MEDS: ZIPRASIDONE HCL 80 MG CAP PO SCH (08:34)
[2017-07-14] MEDS: MULTIVITAMIN TAB PO SCH (08:35)
[2017-07-14] MEDS: FAMOTIDINE 20 MG TAB PO SCH (08:35)
[2017-07-14] MEDS: QUEtiapine FUMARATE 200 MG TAB PO SCH (08:35)
[2017-07-14] MEDS: CALCIUM/VITAMIN D 250 MG/125 U TAB PO SCH (08:35)
[2017-07-14] MEDS: ASPIRIN EC 81 MG TABEC PO SCH (08:36)
[2017-07-14] MEDS: FLUTICASONE PROPIONATE 50 MCG/ACT 16 GM NASAL SPRAY EACH NARE SCH (08:36)
[2017-07-14] MEDS: NICOTINE 21 MG/24 HR PATCH T-DERMAL SCH (08:37)
[2017-07-14] MEDS ORDERED: FURO1TAB60 PO (14:15)
[2017-07-14] MEDS ORDERED: REME30TA PO (14:15)
[2017-07-14] MEDS ORDERED: TRAZ100T10 PO (14:15)
[2017-07-14] MEDS ORDERED: ASPI81TA16 PO (14:15)
[2017-07-14] MEDS ORDERED: LIPI20TA PO (14:15)
[2017-07-14] MEDS ORDERED: GEOD80CA PO (14:15)
[2017-07-14] MEDS ORDERED: QUET1TAB9 PO (14:15)
[2017-07-14] MEDS ORDERED: LEVO112T2 PO (14:15)
[2017-07-14] MEDS ORDERED: KLOR10TA PO (14:15)
[2017-07-14] MEDS ORDERED: TIZA4 PO (14:15)
--- NOTE | 2017-07-14 14:23 | HHI.DS ---
Psychiatry Discharge Summary Inpatient Psychiatric care?: Yes Advance Directive: No Reason Not Provided: Due to Patient Condition Mental Health AdvanceDirective: No Health Care Proxy: No Admission Admission Date Jul 07, 2017 at 16:50 Admission Diagnosis: (1) Bipolar disorder ICD Code: F31.9 - Bipolar disorder, unspecified Brief History Patient is a 66-year-old white female comes here under Monsivais act from [facility] by Dr. Mon dated 07/07/17 at 11:50 AM stating patient has an extensive history of bipolar multiple hospitalizations neglecting herself, patient was admitted to the observation unit on 07/06/17 through 07/07/17 under visit [id number] patient had rhabdomyolysis other metabolic issues. She was treated by the medicine service, although is a psychiatric consultation with Dr. Mon with the time he saw her she was still with an altered mental status and he recommended the Monsivais act and transfer to the psychiatric unit once medically cleared. Patient urine toxicology was negative blood-alcohol level was negative also. At the present time patient resting quietly in her bed nurse practitioner Jewell medical student Jaren and nurse Pal present throughout session patient is somewhat heavyset white female appears stated age. She is alert well oriented in all 4 spheres. Patient acknowledges being a being bipolar with multiple prior psychiatric hospitalizations most recently being through [facility] a few weeks 2 months ago she Monsivais acted and transferred to a hospital in [place]. She states she lives by herself but has a "fianc" who is frequently over it appears that both level the same apartment building. She states she at times may help her with her medication. She does state she stopped taking medication for a few days prior to this. She also has a supportive sister and brother-in- law who assist her. Though it appears they have a somewhat conflictual relationship. Patient does see Dr. Juan Manuel Marcos in the community she's been seeing him for significant period of time. She denies any alcohol or drug use. She denies any physical or sexual abuse. She states his most mental health issues and addictions in the family. Patient states she has been 5 times has 1 adult child. At this time I feel patient does meet criteria for further observation assessment. However I do feel she does have capacity to sign for readmission and her medication list I'll lift the Monsivais act allow her sign voluntary we continue to have a hospitalist consult with us. Hopeless to be fairly short stay and attention the patient to the community to follow-up with her own psychiatrist Tobacco Use In Past 30 Days: No Tobacco Past 30 Days Alcohol Use: Never Hospital Course Patient's hospital course was uneventful, show compliance with medication from admission, she was no significant behavioral problems. There intensity likely touch with reality mild irritability slowly resolved. She now denies suicidality homicidality voices or visions. She is able contracted to no harm. At this time patient a longer meets criteria for inpatient psychiatric hospitalization. Patient was able contracted to no harm. Patient does have her home to return to. She'll be discharged today to follow-up psychiatric services through her insurance plan or [facility] Results Blood Pressure 132 / 73 Vital Signs Date Time Temp Pulse Resp B/P (MAP) Pulse Ox O2 Delivery O2 Flow Rate FiO2 07/14/17 05:29 98.6 79 18 132/73 (92) 96 Please see EMR for full lab results Summary of Procedures None done Pending results at discharge: No Medications # of Antipsychotic meds at D/C: 2 Appropriate >1 Antipsych meds?: 2 (would recommend a clinician possible gradual taper of the Seroquel as patient stabilizes) Approp Antipsych med options 1 - Minimum of three failed multiple trials of monotherapy. 2 - Documented plan to taper to monotherapy due to previous use of multiple meds OR cross-taper in progress at D/C. 3 - Documentation of augmentation of Clozapine. 4 - Justification other than those listed in allowable values 1-3, document here : Discharge Discharge Date: Jul 14, 2017 Discharge Diagnosis: (1) Bipolar disorder Diagnosis: Principal ICD Code: F31.9 - Bipolar disorder, unspecified Status: Chronic Pt Condition on Discharge: Stable Discharge Disposition: Discharge Home Discharge Instructions Diet Instructions: As Tolerated, No Restrictions Activities you can perform: Regular-No Restrictions Scheduled Appointment: [facility] (or with clinician through insurance panel) Discharge Time > 30 minutes Mental Status Examination Appearance: Appropriate Consciousness: Alert Orientation: x4 Motor Activity: Normal gait Speech: Unremarkable Language: Adequate Fund of Knowledge: Adequate Attention and Concentration: Adequate Memory: Unremarkable (some memory loss related to her admission) Mood: Other (euthymic to mildly dysphoric) Affect: Other (slight decreased range and intensity) Thought Process & Associations: Tangential Thought Content: Appropriate Hallucination Type: None Delusion Type: Paranoid (mild) Suicidal Ideation: No Suicidal Plan: No Suicidal Intention: No Homicidal Ideation: No Homicidal Plan: No Homicidal Intention: No Insight: Fair Judgment: Impulsive Discharge/Advance Care Plan Health Problems: (1) Bipolar disorder (2) Delirium Goals to promote your health * To prevent worsening of your condition and complications * To maintain your health at the optimal level Directions to meet your goals Take your medications as prescribed Follow your dietary instruction Follow activity as directed Keep your appointments as scheduled Take your immunizations and boosters as scheduled If your symptoms worsen call your PCP, if no PCP go to Urgent Care Center or Emergency Room For 23/12 questions related to your inpatient stay or results of tests pending at discharge, please contact Dr. Pedro Wagner at Smoking is Dangerous to Your Health. Avoid second hand smoking Problem Qualifiers (1) Bipolar disorder: Qualified Codes: F31.12 - Bipolar disorder, current episode manic without psychotic features, moderate Pedro Wagner MD Jul 14, 2017 14:23
== END 2017-07-14 18:00 | disposition home or self-care (01) | DRG 885 ==
LOC: H250 16:50
PROVIDERS: ADMIT Psychiatry & Neurology Psychiatry; ATTEND Psychiatry & Neurology Psychiatry
DX: F31.12 Bipolar disorder, current episode manic without psychotic features, moderate (principal); I12.9 Hypertensive chronic kidney disease with stage 1 through stage 4 chronic kidney disease, or unspecified chronic kidney disease; E03.9 Hypothyroidism, unspecified; M50.30 Other cervical disc degeneration, unspecified cervical region; M79.7 Fibromyalgia; R41.0 Disorientation, unspecified; M51.36 Other intervertebral disc degeneration, lumbar region; N18.2 Chronic kidney disease, stage 2 (mild); R60.0 Localized edema; R51 Headache; E78.5 Hyperlipidemia, unspecified; R41.3 Other amnesia; F17.200 Nicotine dependence, unspecified, uncomplicated; Z81.8 Family history of other mental and behavioral disorders; Z88.0 Allergy status to penicillin; Z88.1 Allergy status to other antibiotic agents; Z88.2 Allergy status to sulfonamides
CPT/HCPCS: 36600; 70450; 80053; 80307; 81001; 82140; 82550; 82552; 82805; 85025; 85610; 85730; 93005; 96361; 96374; 96376; G0378; G8987-GP; G8988-GP; J2060; J7030

== ENCOUNTER 2017-07-24 12:36 | Emergency (ER) | payer MEDICARE, MEDICAID ==
[~2017-07-24] VITALS: Ht 157.5 cm; Wt 75.0 kg
[~2017-07-24 12:36] MED LIST changes: -CLON1 PO; -MIRA3350 PO; -PERC7.5T13 PO; +QUET1TAB9 PO; -SERO400T PO
[2017-07-24 12:38] VITALS: BP 125/66; PULSE 83; RESP 18; TEMP 99.5; O2SAT 96
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
[2017-07-24 14:21] LABS: AUTOMATED NEUTROPHIL # 3.5 TH/MM3 (1.8-7.7); BASOPHIL % 0.5 % (0.0-2.0); EOSINOPHIL % 0.5 % (0.0-4.0); HEMATOCRIT 38.6 % (35.0-46.0); HEMOGLOBIN 12.6 GM/DL (11.6-15.3); LYMPH % 25.7 % (9.0-44.0); LYMPHOCYTE # 1.5 TH/MM3 (1.0-4.8); MEAN CELL VOLUME 96.5 FL (80.0-100.0); MEAN CORPUSCULAR HEMOGLOBIN 31.5 PG (27.0-34.0); MEAN CORPUSCULAR HGB CONC 32.6 % (32.0-36.0); MEAN PLATELET VOLUME 6.5 FL (7.0-11.0); MONO % 12.3 % (0.0-8.0); MONOCYTE # 0.7 TH/MM3 (0-0.9); PLATELET COUNT 267 TH/MM3 (150-450); RED CELL DISTRIBUTION WIDTH 13.1 % (11.6-17.2); WHITE BLOOD COUNT 5.8 TH/MM3 (4.0-11.0)
--- NOTE | 2017-07-24 14:24 | RADRPT ---
EXAM DATE/TIME: 07/24/2017 13:38 [facility] COMPARISON: No previous studies available for comparison. INDICATIONS : Shortness of breath. MEDICAL HISTORY : Gastroesophageal reflux disease. Hernia, hiatal. SURGICAL HISTORY : Cholecystectomy. Hysterectomy. ENCOUNTER: Initial ACUITY: 1 day PAIN SCORE: 0/10 LOCATION: Bilateral chest FINDINGS: The heart is mildly enlarged. The lungs demonstrate chronic interstitial changes but are otherwise cl ear. No pneumothorax is seen. The visualized osseous structures demonstrate a moderately displaced fracture of the distal left clav icle. CONCLUSION: 1. No acute cardiopulmonary findings identified. 2. Moderately displaced fracture of the distal left clavicle. Pravin Asencio MD on July 24, 2017 at 14:22 Board Certified Radiologist. This report was verified electronically.
--- NOTE | 2017-07-24 14:30 | RADRPT ---
EXAM DATE/TIME: 07/24/2017 13:46 [facility] COMPARISON: No previous studies available for comparison. INDICATIONS : Left shoulder pain, fall. MEDICAL HISTORY : Gastroesophageal reflux disease. Hernia, hiatal. SURGICAL HISTORY : Cholecystectomy. Hysterectomy. ENCOUNTER: Initial ACUITY: 1 day PAIN SCORE: 10/10 LOCATION: Left proximal shoulder FINDINGS: 4 views of the left shoulder reveal acute fracture involving the distal aspects of the clavicle. Ther e is inferior displacement of the proximal fracture fragment relative to the distal fracture fragment . The scapula and proximal humerus are intact. CONCLUSION: Acute distal clavicular fracture. Joselito Jones Jr., MD on July 24, 2017 at 14:27 Board Certified Radiologist. This report was verified electronically.
[2017-07-24 14:37] LABS: BICARBONATE 32.5 MEQ/L (21.0-32.0); CALCIUM 9.3 MG/DL (8.5-10.1); CREATININE 0.99 MG/DL (0.50-1.00)
[2017-07-24] MEDS ORDERED: IBUP1TAB7 PO (15:07)
[2017-07-24 15:43] VITALS: BP 142/72; PULSE 67; RESP 18; O2SAT 97
== END 2017-07-24 15:50 | disposition home or self-care (01) ==
LOC: NEPD 12:36
DX: S42.032A Displaced fracture of lateral end of left clavicle, initial encounter for closed fracture (principal); T14.8XXA Other injury of unspecified body region, initial encounter; Y04.8XXA Assault by other bodily force, initial encounter
CPT/HCPCS: 71046; 73030; 80048; 82550; 82552; 85025; 99284

== ENCOUNTER 2017-09-18 18:16 | Emergency (ER) | payer MEDICARE, MEDICAID, OTHER ==
[~2017-09-18] VITALS: Ht 157.5 cm; Wt 70.0 kg
[~2017-09-18 18:16] MED LIST changes: +IBUP1TAB7 PO
[2017-09-18 18:39] VITALS: BP 120/64; PULSE 70; RESP 14; TEMP 98.7; O2SAT 99
[2017-09-18 18:59] LABS: BACTERIA, URINE OCC /hpf; BILIRUBIN, URINE NEG (NEG); BLOOD, URINE NEG (NEG); GLUCOSE,URINE NEG (NEG); KETONE, URINE NEG (NEG); NITRITE,URINE NEG (NEG); SQUAMOUS EPITHELIAL CELL URINE 4 /hpf (0-5); URINE COLOR LIGHT-YELLOW (YELLW/STRAW); URINE LEUKOCYTE ESTERASE SMALL (NEG)
[2017-09-18 18:59] LABS: AUTOMATED NEUTROPHIL # 3.1 TH/MM3 (1.8-7.7); BASOPHIL % 0.7 % (0.0-2.0); EOSINOPHIL % 0.3 % (0.0-4.0); HEMATOCRIT 40.6 % (35.0-46.0); HEMOGLOBIN 13.2 GM/DL (11.6-15.3); LYMPH % 38.3 % (9.0-44.0); LYMPHOCYTE # 2.4 TH/MM3 (1.0-4.8); MEAN CELL VOLUME 92.9 FL (80.0-100.0); MEAN CORPUSCULAR HEMOGLOBIN 30.3 PG (27.0-34.0); MEAN CORPUSCULAR HGB CONC 32.6 % (32.0-36.0); MEAN PLATELET VOLUME 6.8 FL (7.0-11.0); MONO % 10.5 % (0.0-8.0); MONOCYTE # 0.7 TH/MM3 (0-0.9); NEUT % 50.2 % (16.0-70.0); PLATELET COUNT 242 TH/MM3 (150-450); RED BLOOD COUNT 4.37 MIL/MM3 (4.00-5.30); RED CELL DISTRIBUTION WIDTH 13.9 % (11.6-17.2); WHITE BLOOD COUNT 6.2 TH/MM3 (4.0-11.0)
--- NOTE | 2017-09-18 19:25 | PD ---
HPI Chief Complaint: Psychiatric Symptoms Time Seen by Provider: 18:40 Travel History International Travel<30 days: No Contact w/Intl Traveler<30days: No Traveled to known affect area: No History of Present Illness HPI 66-year-old female with history of bipolar disorder presents emergency department under [place] act for psychiatric evaluation. Patient states she has been feeling very anxious and depressed. She has missed the last 2-3 doses of her medication. She denies any suicidal homicidal ideations. She states that she "just needs help." Denies any acute medical needs. Denies any other substance abuse. She has no other symptoms to report. PFSH Past Medical History Arthritis: Yes Asthma: No Blood Disorders: No Bipolar Disorder: Yes Anxiety: Yes Depression: Yes Heart Rhythm Problems: No Cancer: No Cardiovascular Problems: No High Cholesterol: No Chemotherapy: No Chest Pain: No Congestive Heart Failure: No COPD: No Diabetes: No Endocrine: No Fibromyalgia: Yes Genitourinary: Yes (at times incontinent urine) Hiatal Hernia: Yes (REPAIRED) Immune Disorder: No Musculoskeletal: Yes (weak and tired, assist with adl's at this time) Neurologic: Yes (seizure hx, catatonic episodes) Psychiatric: Yes Reproductive: No Respiratory: No Immunizations Current: Yes Radiation Therapy: No Sleep Apnea: No Thyroid Disease: No Menopausal: Yes : 2 Para: 2 Tubal Ligation: Yes Past Surgical History Cholecystectomy: Yes Hysterectomy: Yes Tonsillectomy: Yes Other Surgery: Yes (surgical scar on right forearm, sister was not aware of how it occured) Social History Alcohol Use: No Tobacco Use: Yes (NICOTINE PATCHES X 2 WEEKS) Substance Use: No Allergies-Medications (Allergen,Severity, Reaction): Coded Allergies: Sulfa (Sulfonamide Antibiotics) (Unverified Allergy, Severe, 05/15/17) erythromycin base (Unverified Allergy, Severe, 05/15/17) penicillin G (Unverified Allergy, Severe, 05/15/17) Reported Meds & Prescriptions Reported Meds & Active Scripts Active Ibuprofen 800 Mg Tab 800 Mg PO Q8H PRN Geodon (Ziprasidone) 80 Mg Cap 80 Mg PO BID Quetiapine (Quetiapine Fumarate) 200 Mg Tab 200 Mg PO BID Trazodone (Trazodone HCl) 100 Mg Tablet 100 Mg PO HS Zanaflex (Tizanidine HCl) 4 Mg Tab 4 Mg PO TID Klor-Con 10 (Potassium Chloride) 10 Meq Tab 10 Meq PO BID Remeron (Mirtazapine) 30 Mg Tab 30 Mg PO HS Levothyroxine (Levothyroxine Sodium) 112 Mcg Tab 112 Mcg PO DAILY Lasix (Furosemide) 40 Mg Tab 40 Mg PO DAILY Lipitor (Atorvastatin Calcium) 20 Mg Tab 20 Mg PO HS Aspirin Adult Low Strength (Aspirin) 81 Mg Tabdr 81 Mg PO DAILY Reported Zantac (Ranitidine HCl) 300 Mg Tab 300 Mg PO HS Evista (Raloxifene HCl) 60 Mg Tab 60 Mg PO DAILY Metamucil Smooth Texture (Psyllium Hydrophilic Mucilloid) 3.4 Gram Pow 3.4 Gm PO DAILY [place]-3 ([place]-3 Fatty Acids) 1,000 Mg Capsule 1,000 Mg PO BID Multi-Vitamin/Minerals (Multiple Vitamins W/ Minerals) 1 Tab Tab 1 Tab PO DAILY Citracal+D3 (Trrenou-Dkhexactbw-Amnsyyv D) 250-107-500 Mg-Mg-Unit Chew 1 Chew PO BID Review of Systems Except as stated in HPI: all other systems reviewed are Neg Physical Exam Narrative GENERAL: Well-nourished female patient, in no acute distress. SKIN: Focused skin assessment warm/dry. HEAD: Atraumatic. Normocephalic. EYES: Pupils equal and round. No scleral icterus. No injection or drainage. ENT: No nasal bleeding or discharge. Mucous membranes pink and moist. NECK: Trachea midline. No JVD. CARDIOVASCULAR: Regular rate and rhythm. No murmur appreciated. RESPIRATORY: No accessory muscle use. Clear to auscultation. Breath sounds equal bilaterally. GASTROINTESTINAL: Abdomen soft, non-tender, nondistended. Hepatic and splenic margins not palpable. MUSCULOSKELETAL: No obvious deformities. No clubbing. No cyanosis. No edema. NEUROLOGICAL: Awake and alert. No obvious cranial nerve deficits. Motor grossly within normal limits. Normal speech. Data Data Last Documented VS Vital Signs Date Time Temp Pulse Resp B/P (MAP) Pulse Ox O2 Delivery O2 Flow Rate FiO2 09/18/17 18:39 98.7 70 14 120/64 (82) 99 Orders Orders Complete Blood Count With Diff (09/18/17 18:40) Thyroid Stimulating Hormone (09/18/17 18:40) Urinalysis - C+S If Indicated (4/19/18 18:40) Psych Screen (09/18/17 18:40) Drug Screen, Random Urine (09/18/17 18:40) Alcohol (Ethanol) (09/18/17 18:40) Urine Culture (09/18/17 18:43) Basic Metabolic Panel (Bmp) (09/18/17 19:28) Labs Laboratory Tests Test 09/18/17 18:30 09/18/17 18:43 White Blood Count 6.2 TH/MM3 Red Blood Count 4.37 MIL/MM3 Hemoglobin 13.2 GM/DL Hematocrit 40.6 % Mean Corpuscular Volume 92.9 FL Mean Corpuscular Hemoglobin 30.3 PG Mean Corpuscular Hemoglobin Concent 32.6 % Red Cell Distribution Width 13.9 % Platelet Count 242 TH/MM3 Mean Platelet Volume 6.8 FL Neutrophils (%) (Auto) 50.2 % Lymphocytes (%) (Auto) 38.3 % Monocytes (%) (Auto) 10.5 % Eosinophils (%) (Auto) 0.3 % Basophils (%) (Auto) 0.7 % Neutrophils # (Auto) 3.1 TH/MM3 Lymphocytes # (Auto) 2.4 TH/MM3 Monocytes # (Auto) 0.7 TH/MM3 Eosinophils # (Auto) 0.0 TH/MM3 Basophils # (Auto) 0.0 TH/MM3 CBC Comment DIFF FINAL Differential Comment Blood Urea Nitrogen 13 MG/DL Creatinine 1.27 MG/DL Random Glucose 86 MG/DL Calcium Level 9.3 MG/DL Sodium Level 139 MEQ/L Potassium Level 4.0 MEQ/L Chloride Level 105 MEQ/L Carbon Dioxide Level 25.7 MEQ/L Anion Gap 8 MEQ/L Estimat Glomerular Filtration Rate 42 ML/MIN Thyroid Stimulating Hormone 3rd Gen 1.350 uIU/ML Ethyl Alcohol Level LESS THAN 3 MG/DL Urine Color LIGHT-YELLOW Urine Turbidity HAZY Urine pH 6.0 Urine Specific [place] 1.003 Urine Protein NEG mg/dL Urine Glucose (UA) NEG mg/dL Urine Ketones NEG mg/dL Urine Occult Blood NEG Urine Nitrite NEG Urine Bilirubin NEG Urine Urobilinogen LESS THAN 2.0 MG/DL Urine Leukocyte Esterase SMALL Urine RBC LESS THAN 1 /hpf Urine WBC 15 /hpf Urine Squamous Epithelial Cells 4 /hpf Urine Bacteria OCC /hpf Microscopic Urinalysis Comment CULTURE INDICATED Urine Opiates Screen NEG Urine Barbiturates Screen NEG Urine Amphetamines Screen NEG Urine Benzodiazepines Screen NEG Urine Cocaine Screen NEG Urine Cannabinoids Screen NEG MDM Medical Decision Making Medical Screen Exam Complete: Yes Emergency Medical Condition: Yes Medical Record Reviewed: Yes Differential Diagnosis Mood disorder versus personality disorder versus adjustment reaction disorder Narrative Course 66-year-old female presents emergency department for evaluation under Monsivais act. Patient appears without distress. Her vital signs are stable. Laboratory Tests Test 09/18/17 18:30 09/18/17 18:43 White Blood Count 6.2 TH/MM3 Red Blood Count 4.37 MIL/MM3 Hemoglobin 13.2 GM/DL Hematocrit 40.6 % Mean Corpuscular Volume 92.9 FL Mean Corpuscular Hemoglobin 30.3 PG Mean Corpuscular Hemoglobin Concent 32.6 % Red Cell Distribution Width 13.9 % Platelet Count 242 TH/MM3 Mean Platelet Volume 6.8 FL Neutrophils (%) (Auto) 50.2 % Lymphocytes (%) (Auto) 38.3 % Monocytes (%) (Auto) 10.5 % Eosinophils (%) (Auto) 0.3 % Basophils (%) (Auto) 0.7 % Neutrophils # (Auto) 3.1 TH/MM3 Lymphocytes # (Auto) 2.4 TH/MM3 Monocytes # (Auto) 0.7 TH/MM3 Eosinophils # (Auto) 0.0 TH/MM3 Basophils # (Auto) 0.0 TH/MM3 CBC Comment DIFF FINAL Differential Comment Blood Urea Nitrogen 13 MG/DL Creatinine 1.27 MG/DL Random Glucose 86 MG/DL Calcium Level 9.3 MG/DL Sodium Level 139 MEQ/L Potassium Level 4.0 MEQ/L Chloride Level 105 MEQ/L Carbon Dioxide Level 25.7 MEQ/L Anion Gap 8 MEQ/L Estimat Glomerular Filtration Rate 42 ML/MIN Thyroid Stimulating Hormone 3rd Gen 1.350 uIU/ML Ethyl Alcohol Level LESS THAN 3 MG/DL Urine Color LIGHT-YELLOW Urine Turbidity HAZY Urine pH 6.0 Urine Specific [place] 1.003 Urine Protein NEG mg/dL Urine Glucose (UA) NEG mg/dL Urine Ketones NEG mg/dL Urine Occult Blood NEG Urine Nitrite NEG Urine Bilirubin NEG Urine Urobilinogen LESS THAN 2.0 MG/DL Urine Leukocyte Esterase SMALL Urine RBC LESS THAN 1 /hpf Urine WBC 15 /hpf Urine Squamous Epithelial Cells 4 /hpf Urine Bacteria OCC /hpf Microscopic Urinalysis Comment CULTURE INDICATED Urine Opiates Screen NEG Urine Barbiturates Screen NEG Urine Amphetamines Screen NEG Urine Benzodiazepines Screen NEG Urine Cocaine Screen NEG Urine Cannabinoids Screen NEG Lab work is reviewed and without any acute concern. Patient is medically cleared to undergo psychiatric screening for further evaluation and disposition. Mental health screening discussed with the patient. Psychiatric screen ordered. Diagnosis Primary Impression: Bipolar disorder Qualified Codes: F31.31 - Bipolar disorder, current episode depressed, mild Additional Impression: UTI (urinary tract infection) Scripts Cephalexin (Keflex) 500 Mg Cap 500 MG PO Q12H for Infection for 7 Days, #14 CAP 0 Refills Prov: Nicole Mathias 09/18/17 Condition: Stable Nicole Mathias Sep 18, 2017 19:25
[2017-09-18 20:12] LABS: BICARBONATE 25.7 MEQ/L (21.0-32.0); CALCIUM 9.3 MG/DL (8.5-10.1); CREATININE 1.27 MG/DL (0.50-1.00)
[2017-09-18] MEDS ORDERED: CEPH-460 PO (20:23)
[2017-09-18] MEDS ORDERED: CEPHALEXIN MONOHYDRATE 500 MG CAP PO SCH (21:00)
[2017-09-19 00:39] VITALS: BP 134/65; PULSE 79; RESP 17; TEMP 97.3; O2SAT 95
[2017-09-19 04:47] VITALS: BP 162/82; PULSE 76; RESP 18; TEMP 98.5; O2SAT 97
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
[2017-09-19] MEDS ORDERED: VIST25CA PO (11:06)
[2017-09-19 11:29] VITALS: BP 157/92; PULSE 84; RESP 16; TEMP 98.6; O2SAT 95
--- NOTE | 2017-09-19 11:30 | PD ---
Physical Exam Date Seen by Provider: Sep 19, 2017 Time Seen by Provider: 11:27 Narrative For full history and physical examination please see previous providers notes. Patient presented to the emergency department under [place] act for psychiatric evaluation. Data Data Last Documented VS Vital Signs Date Time Temp Pulse Resp B/P (MAP) Pulse Ox O2 Delivery O2 Flow Rate FiO2 09/19/17 11:29 98.6 84 16 157/92 (113) 95 Room Air Orders Orders Complete Blood Count With Diff (09/18/17 18:40) Thyroid Stimulating Hormone (09/18/17 18:40) Urinalysis - C+S If Indicated (09/18/17 18:40) Psych Screen (09/18/17 18:40) Drug Screen, Random Urine (09/18/17 18:40) Alcohol (Ethanol) (09/18/17 18:40) Urine Culture (09/18/17 18:43) Basic Metabolic Panel (Bmp) (09/18/17 19:28) Cephalexin (Keflex) (09/18/17 21:00) Diet Regular Basic (09/19/17 Breakfast) Ed Discharge Order (09/19/17 11:26) Labs Laboratory Tests Test 09/18/17 18:30 4 18:43 White Blood Count 6.2 TH/MM3 Red Blood Count 4.37 MIL/MM3 Hemoglobin 13.2 GM/DL Hematocrit 40.6 % Mean Corpuscular Volume 92.9 FL Mean Corpuscular Hemoglobin 30.3 PG Mean Corpuscular Hemoglobin Concent 32.6 % Red Cell Distribution Width 13.9 % Platelet Count 242 TH/MM3 Mean Platelet Volume 6.8 FL Neutrophils (%) (Auto) 50.2 % Lymphocytes (%) (Auto) 38.3 % Monocytes (%) (Auto) 10.5 % Eosinophils (%) (Auto) 0.3 % Basophils (%) (Auto) 0.7 % Neutrophils # (Auto) 3.1 TH/MM3 Lymphocytes # (Auto) 2.4 TH/MM3 Monocytes # (Auto) 0.7 TH/MM3 Eosinophils # (Auto) 0.0 TH/MM3 Basophils # (Auto) 0.0 TH/MM3 CBC Comment DIFF FINAL Differential Comment Blood Urea Nitrogen 13 MG/DL Creatinine 1.27 MG/DL Random Glucose 86 MG/DL Calcium Level 9.3 MG/DL Sodium Level 139 MEQ/L Potassium Level 4.0 MEQ/L Chloride Level 105 MEQ/L Carbon Dioxide Level 25.7 MEQ/L Anion Gap 8 MEQ/L Estimat Glomerular Filtration Rate 42 ML/MIN Thyroid Stimulating Hormone 3rd Gen 1.350 uIU/ML Ethyl Alcohol Level LESS THAN 3 MG/DL Urine Color LIGHT-YELLOW Urine Turbidity HAZY Urine pH 6.0 Urine Specific [place] 1.003 Urine Protein NEG mg/dL Urine Glucose (UA) NEG mg/dL Urine Ketones NEG mg/dL Urine Occult Blood NEG Urine Nitrite NEG Urine Bilirubin NEG Urine Urobilinogen LESS THAN 2.0 MG/DL Urine Leukocyte Esterase SMALL Urine RBC LESS THAN 1 /hpf Urine WBC 15 /hpf Urine Squamous Epithelial Cells 4 /hpf Urine Bacteria OCC /hpf Microscopic Urinalysis Comment CULTURE INDICATED Urine Opiates Screen NEG Urine Barbiturates Screen NEG Urine Amphetamines Screen NEG Urine Benzodiazepines Screen NEG Urine Cocaine Screen NEG Urine Cannabinoids Screen NEG MDM Medical Record Reviewed: Yes Supervised Visit with NAM: No Interpretation(s) Laboratory Tests Test 09/18/17 18:30 09/18/17 18:43 White Blood Count 6.2 TH/MM3 Red Blood Count 4.37 MIL/MM3 Hemoglobin 13.2 GM/DL Hematocrit 40.6 % Mean Corpuscular Volume 92.9 FL Mean Corpuscular Hemoglobin 30.3 PG Mean Corpuscular Hemoglobin Concent 32.6 % Red Cell Distribution Width 13.9 % Platelet Count 242 TH/MM3 Mean Platelet Volume 6.8 FL Neutrophils (%) (Auto) 50.2 % Lymphocytes (%) (Auto) 38.3 % Monocytes (%) (Auto) 10.5 % Eosinophils (%) (Auto) 0.3 % Basophils (%) (Auto) 0.7 % Neutrophils # (Auto) 3.1 TH/MM3 Lymphocytes # (Auto) 2.4 TH/MM3 Monocytes # (Auto) 0.7 TH/MM3 Eosinophils # (Auto) 0.0 TH/MM3 Basophils # (Auto) 0.0 TH/MM3 CBC Comment DIFF FINAL Differential Comment Blood Urea Nitrogen 13 MG/DL Creatinine 1.27 MG/DL Random Glucose 86 MG/DL Calcium Level 9.3 MG/DL Sodium Level 139 MEQ/L Potassium Level 4.0 MEQ/L Chloride Level 105 MEQ/L Carbon Dioxide Level 25.7 MEQ/L Anion Gap 8 MEQ/L Estimat Glomerular Filtration Rate 42 ML/MIN Thyroid Stimulating Hormone 3rd Gen 1.350 uIU/ML Ethyl Alcohol Level LESS THAN 3 MG/DL Urine Color LIGHT-YELLOW Urine Turbidity HAZY Urine pH 6.0 Urine Specific [place] 1.003 Urine Protein NEG mg/dL Urine Glucose (UA) NEG mg/dL Urine Ketones NEG mg/dL Urine Occult Blood NEG Urine Nitrite NEG Urine Bilirubin NEG Urine Urobilinogen LESS THAN 2.0 MG/DL Urine Leukocyte Esterase SMALL Urine RBC LESS THAN 1 /hpf Urine WBC 15 /hpf Urine Squamous Epithelial Cells 4 /hpf Urine Bacteria OCC /hpf Microscopic Urinalysis Comment CULTURE INDICATED Urine Opiates Screen NEG Urine Barbiturates Screen NEG Urine Amphetamines Screen NEG Urine Benzodiazepines Screen NEG Urine Cocaine Screen NEG Urine Cannabinoids Screen NEG Vital Signs Date Time Temp Pulse Resp B/P (MAP) Pulse Ox O2 Delivery O2 Flow Rate FiO2 09/19/17 04:47 98.5 76 18 162/82 (108) 97 Room Air 09/19/17 00:39 97.3 79 17 134/65 (88) 95 Room Air 09/18/17 18:39 98.7 70 14 120/64 (82) 99 Narrative Course Patient presented to the emergency department under [place] act for psychiatric evaluation. She was seen and evaluated, medically cleared. She was evaluated by the psychiatric nurse practitioner who per her report lifted the [place] act because patient did not meet criteria. Please see her documentation for full report. Patient will be discharged home with a short course of oral medications for anxiety. She will follow-up with Dr. Marcos. Diagnosis Primary Impression: Bipolar disorder Qualified Codes: F31.31 - Bipolar disorder, current episode depressed, mild Additional Impression: UTI (urinary tract infection) Qualified Codes: N39.0 - Urinary tract infection, site not specified Referrals: Psychiatrist Follow-up with Dr. Marcos, call for an appointment Patient Instructions: General Instructions Additional Instruction: Follow-up with Dr. Marcos Take medications as needed and as directed for anxiety Complete full course of antibiotics as prescribed for urinary tract infection Increase oral fluid intake Return to emergency department for any new or worsening symptoms Med/Other Pt SpecificInfo: Prescription(s) given Scripts Cephalexin (Keflex) 500 Mg Cap 500 MG PO Q12H for Infection for 7 Days, #14 CAP 0 Refills Prov: Bette Gaona 09/19/17 Hydroxyzine Pamoate (Vistaril) 25 Mg Cap 25 MG PO TID Y for ANXIETY AND/OR INSOMNIA, #15 CAP 0 Refills Prov: Renetta Walker 09/19/17 Disposition: 01 DISCHARGE HOME Condition: Stable Bette Gaona [employer] TRA[employer] Sep 19, 2017 11:30
[2017-09-19] MEDS ORDERED: CEPH-460 PO (11:36)
== END 2017-09-19 12:22 | disposition home or self-care (01) ==
LOC: NEDAMB 18:16 → NEPJ 09-19 12:22
DX: F31.31 Bipolar disorder, current episode depressed, mild (principal); N39.0 Urinary tract infection, site not specified; F41.8 Other specified anxiety disorders; M79.7 Fibromyalgia; Z72.0 Tobacco use; Z86.69 Personal history of other diseases of the nervous system and sense organs; Z87.39 Personal history of other diseases of the musculoskeletal system and connective tissue
CPT/HCPCS: 80048; 80307; 81001; 84443; 85025; 87086; 99284